=== PATIENT | female | born 1970 | race Caucasian/White ===

== ENCOUNTER 2021-11-09 08:27 | Emergency (ER) | payer SELFPAY ==
[2021-11-09 09:52] LABS: Absolute Lymphocytes (CBC) 1.8 K/uL (0.7-4.9); Hematocrit 40.3 % (36.0-45.0); Lymphocytes % 26.2 % (15.3-44.8); MPV 7.4 fL (7.6-11.3); RBC Red Blood Cell Count 4.37 M/uL (3.86-4.86)
[2021-11-09 10:03] LABS: ALT/SGPT 20 U/L (12-78); AST/SGOT 7 U/L (15-37); Albumin 3.2 g/dL (3.4-5.0); Alkaline Phosphatase 60 U/L (45-117); BUN Blood Urea Nitrogen 12 mg/dL (7-18); Bicarbonate 28 mmol/L (21-32); Bilirubin Direct < 0.1 mg/dL (0-0.2); Bilirubin Total 0.3 mg/dL (0.2-1.0); Glucose Level 104 mg/dL (74-106); Lipase 44 U/L (73-393); Potassium 3.8 mmol/L (3.5-5.1); Protein, Total 7.6 g/dL (6.4-8.2); Sodium Level 140 mmol/L (136-145)
--- NOTE | 2021-11-09 10:22 | RAD REPORT ---
EXAM DESCRIPTION: CTAbdomen Pelvis W Contrast - 11/09/2021 10:06 am CLINICAL HISTORY: right sided abdominal pain COMPARISON: No comparisons TECHNIQUE: CT of the abdomen and pelvis was performed. All CT scans are performed using dose optimization technique as appropriate and may include automated exposure control or mA/KV adjustment according to patient size. FINDINGS: Lower chest: No acute abnormality. Liver: No acute abnormality or suspicious lesions. Biliary: Cholecystectomy Stomach: No significant focal abnormality. Duodenum: No significant focal abnormality. Pancreas: No significant abnormality. Spleen: No significant abnormality. Adrenal: No suspicious lesions. Kidney/ureter: No hydronephrosis. No renal calculi. Retroperitoneum: No retroperitoneal adenopathy. Vascular: No aneurysm. Bowel: No significant focal abnormality. Normal appendix. Peritoneum: No ascites or free air. Tiny fat containing umbilical hernia. Bladder: Trace bladder gas. Reproductive: No adnexal masses. Nabothian cyst noted. Bones: No acute fracture. Other: n/a IMPRESSION: No acute intra-abdominal or pelvic finding. Trace bladder gas could represent infection. Correlate with urinalysis. Normal appendix. No urinary tract calculi.
[2021-11-09 10:23] LABS: Urine Blood Trace-intact (Negative); Urine Glucose Negative (Negative); Urine Protein Negative (Negative); Urine pH 5.5 (5.0-7.0)
--- NOTE | 2021-11-09 10:47 | ER ---
Nurse's Notes [facility] Name: Brenda Nicole Age: 51 yrs Sex: Female : 1970 Arrival Date: 11/09/2021 Time: 08:30 Bed 13 Private MD: Diagnosis: Other abdominal pain Presentation: 11/09 08:33 Chief complaint: Patient states: sob, sinus congestion, abdominal pain. tested positive meyer for covid oct 23. Coronavirus screen: Vaccine status: Patient reports receiving the 2nd dose of the covid vaccine. Ebola Screen: Patient denies travel to an Ebola-affected area in the 21 days before illness onset. Initial Sepsis Screen: Does the patient meet any 2 criteria? No. Patient's initial sepsis screen is negative. Does the patient have a suspected source of infection? No. Patient's initial sepsis screen is negative. Risk Assessment: Do you want to hurt yourself or someone else? Patient reports no desire to harm self or others. Onset of symptoms was November 09, 2021. 08:33 Method Of Arrival: Ambulatory meyer 08:33 Acuity: ANKITA 3 meyer Triage Assessment: 08:35 General: Appears uncomfortable, well developed, well nourished, Behavior is calm, cb5 cooperative, appropriate for age. Pain: Complains of pain in abdomen Pain radiates to back Pain currently is 5 out of 10 on a pain scale. Respiratory: Reports cough that is tested positive for Covid in Oct Onset: The symptoms/episode began/occurred the patient has mild shortness of breath. Historical: - Allergies: 08:36 Sulfa (Sulfonamide Antibiotics); meyer - Home Meds: 08:36 None [Active]; meyer - PSHx: 08:36 None; meyer - Immunization history:: Adult Immunizations up to date. - Social history:: Smoking status: Patient denies any tobacco usage or history of. Screenin:56 Abuse screen: Denies threats or abuse. Denies injuries from another. Nutritional cb5 screening: No deficits noted. Tuberculosis screening: No symptoms or risk factors identified. Fall Risk None identified. Assessment: 08:45 General: Appears in no apparent distress. obese, well groomed, well nourished, Behavior cb5 is calm, cooperative, appropriate for age. Pain: Complains of pain in back and abdomen Pain currently is 5 out of 10 on a pain scale. Neuro: No deficits noted. Level of Consciousness is awake, alert, obeys commands, Oriented to person, place, time, situation, Appropriate for age. Cardiovascular: Rhythm is sinus rhythm. Respiratory: Reports cough that is Airway is patent Respiratory effort is even, Breath sounds are clear. GI: Patient currently denies. : Denies. EENT: No deficits noted. Derm: No deficits noted. Musculoskeletal: No deficits noted. Vital Signs: 08:33 BP 166 / 104; Pulse 89; Resp 18; Temp 97.7(O); Pulse Ox 100% on R/A; Weight 111.13 kg; meyer Height 5 ft. 6 in. (167.64 cm); 08:56 BP 152 / 76; Pulse 73; Resp 16; Temp 98.4; Pulse Ox 98% ; Pain 5/10; cb5 10:47 BP 131 / 70; Pulse 72; Resp 16; Temp 98.7; Pulse Ox 99% ; Pain 0/10; cb5 08:33 Body Mass Index 39.54 (111.13 kg, 167.64 cm) meyer ED Course: 08:30 Patient arrived in ED. as 08:36 Triage completed. meyer 08:37 Brandon Hui PA is PHCP. [facility] 08:37 Nathan Lisa MD is Attending Physician. [facility] 08:40 Peggy Messer, CARMELINA is Primary Nurse. cb5 08:54 Arm band placed on right wrist. cb5 08:56 Bed in low position. Call light in reach. Side rails up X 1. cb5 09:32 Basic Metabolic Panel Sent. cb5 09:32 CBC with Diff Sent. cb5 09:32 Hepatic Function Sent. cb5 09:32 Lipase Sent. cb5 09:39 Inserted saline lock: 22 gauge in right antecubital area, using aseptic technique. mb4 Blood collected. 09:49 IV discontinued, bleeding controlled, Pressure dressing applied. mb4 09:49 Inserted saline lock: 22 gauge in left antecubital area, using aseptic technique. mb4 10:06 CT Abd/Pelvis - IV Contrast Only In Process Unspecified. EDMS 10:46 Anibal Freitas MD is Referral Physician. jmm 10:54 No provider procedures requiring assistance completed. cb5 10:55 Patient did not have IV access during this emergency room visit. cb5 Administered Medications: No medications were administered Outcome: 10:46 Discharge ordered by MD. carrillo 10:54 Discharged to home ambulatory. cb5 10:54 Condition: stable 10:54 Discharge instructions given to patient. 10:55 Patient left the ED. cb5 Signatures: Dispatcher [employer] EDMS Brandon Hui PA PA jmm Martinez, Amelia as Baxter, Mackenzie mb4 Sahara Holloway RN Peggy Chen RN RN cb5
--- NOTE | 2021-11-09 10:47 | EDPHYS ---
Physician Documentation [facility] Name: Brenda Nicole Age: 51 yrs Sex: Female : 1970 Arrival Date: 11/09/2021 Time: 08:30 Bed 13 Private MD: ED Physician Nathan Lisa HPI: 11/09 10:43 This 51 yrs old Female presents to ER via Ambulatory with complaints of abdominal pain. m 10:43 The patient presents with abdominal pain. Onset: The symptoms/episode began/occurred jmm gradually, 1 week(s) ago. The symptoms do not radiate. Associated signs and symptoms: Pertinent negatives: nausea and vomiting, diarrhea. The symptoms are described as achy. The patient has not experienced similar symptoms in the past. This is a 51-year-old female who presents emerged from with complaints of right-sided abdominal pain beginning approximately a week ago. Patient states she initially felt a sensation of a mass. States that when she moves it exacerbates the pain. Pain is increased. Patient denies fever, vomiting, diarrhea.. Historical: - Allergies: 08:36 Sulfa (Sulfonamide Antibiotics); meyer - Home Meds: 08:36 None [Active]; meyer - PSHx: 08:36 None; meyer - Immunization history:: Adult Immunizations up to date. - Social history:: Smoking status: Patient denies any tobacco usage or history of. ROS: 10:43 Constitutional: Negative for fever, chills, and weight loss, Cardiovascular: Negative jmm for chest pain, palpitations, and edema, Respiratory: Negative for shortness of breath, cough, wheezing, and pleuritic chest pain. 10:43 Abdomen/GI: Positive for abdominal pain. 10:43 All other systems are negative. Exam: 10:43 Constitutional: This is a well developed, well nourished patient who is awake, alert, jmm and in no acute distress. Head/Face: atraumatic. Eyes: EOMI, no conjunctival erythema appreciated ENT: Moist Mucus Membranes Neck: Trachea midline, Supple Chest/axilla: Normal chest wall appearance and motion. Cardiovascular: Regular rate and rhythm. No edema appreciated Respiratory: Normal respirations, no respiratory distress appreciated 10:43 Back: Normal ROM Skin: General appearance color normal MS/ Extremity: Moves all extremities, no obvious deformities appreciated, no edema noted to the lower extremities Neuro: Awake and alert, normal gait Psych: Behavior is normal, Mood is normal, Patient is cooperative and pleasant 10:43 Abdomen/GI: Inspection: abdomen appears normal, Bowel sounds: normal, Palpation: soft, moderate abdominal tenderness, in the right upper quadrant and right lower quadrant. Vital Signs: 08:33 BP 166 / 104; Pulse 89; Resp 18; Temp 97.7(O); Pulse Ox 100% on R/A; Weight 111.13 kg; meyer Height 5 ft. 6 in. (167.64 cm); 08:56 BP 152 / 76; Pulse 73; Resp 16; Temp 98.4; Pulse Ox 98% ; Pain 5/10; cb5 10:47 BP 131 / 70; Pulse 72; Resp 16; Temp 98.7; Pulse Ox 99% ; Pain 0/10; cb5 08:33 Body Mass Index 39.54 (111.13 kg, 167.64 cm) meyer MDM: 08:55 Patient medically screened. lorena 10:45 Data reviewed: vital signs, nurses notes. Counseling: I had a detailed discussion with lorena the patient and/or guardian regarding: the historical points, exam findings, and any diagnostic results supporting the discharge/admit diagnosis, radiology results, the need for outpatient follow up, to return to the emergency department if symptoms worsen or persist or if there are any questions or concerns that arise at home. ED course: Patient advised follow-up PCP and otherwise given strict return precautions. Patient understood agrees plan of care.. 11/09 08:59 Order name: Basic Metabolic Panel; Complete Time: 10:06 [facility] 11/09 08:59 Order name: CBC with Diff; Complete Time: 10:06 [facility] 11/09 08:59 Order name: Hepatic Function; Complete Time: 10:06 [facility] 11/09 08:59 Order name: Lipase; Complete Time: 10:06 [facility] 11/09 08:59 Order name: CT Abd/Pelvis - IV Contrast Only; Complete Time: 10:26 [facility] 11/09 10:22 Order name: Urine Dipstick-Ancillary; Complete Time: 10:24 [facility] 11/09 08:59 Order name: IV Saline Lock; Complete Time: 09:32 [facility] 11/09 08:59 Order name: Labs collected and sent; Complete Time: 09:32 [facility] 11/09 09:02 Order name: Urine Test (obtain specimen); Complete Time: 10:47 [facility] 11/09 09:02 Order name: Urine Dipstick-Ancillary (obtain specimen); Complete Time: 10:47 [facility] Administered Medications: No medications were administered Disposition: 15:25 Co-signature as Attending Physician, Nathan Lisa MD I agree with the assessment and rn plan of care. Attestation: The patient's history, exam findings, diagnostics, and a summary of any interventions or procedures was reviewed in detail with Brandon XIE. Disposition Summary: 11/09/21 10:46 Discharge Ordered Location: Home [facility] Condition: Stable [facility] Diagnosis - Other abdominal pain [facility] Followup: [facility] - With: Anibal Freitas MD - When: 2 - 3 days - Reason: Recheck today's complaints, Continuance of care, Re-evaluation by your physician Discharge Instructions: - Discharge Summary Sheet [facility] - Abdominal Pain, Adult [facility] Forms: - Medication Reconciliation Form [facility] - Thank You Letter [facility] - Antibiotic Education [facility] - Prescription Opioid Use [facility] Signatures: Dispatcher [employer] EDMS Brandon Hui PA PA [facility] Nathan Lisa MD MD rn Sahara Holloway RN RN meyer
[2021-11-09 13:49] VITALS: BP 131/70; TEMP 98.7; O2SAT 99
== END 2021-11-09 10:55 | disposition home or self-care (01) ==
LOC: ER 08:27
DX: R10.9 Unspecified abdominal pain (principal); Z88.2 Allergy status to sulfonamides
CPT/HCPCS: 36415; 74177; 80048; 80076; 81003; 82565; 83690; 85025; 99284; Q9967

== ENCOUNTER 2021-11-14 05:38 | Emergency (ER) | payer SELFPAY ==
--- OUTSIDE RECORDS SUMMARY | 2021-11-14 05:41 | XMS REPORT | Continuity of Care Document ---
:1970 Author Organization [facility] t Address [address] [place] [address] Dr. Valle [address] [place] [id number] Care Team Providers Name Role Phone PCP, DOES NOT HAVE A Primary Care Physician Unavailable RADHAMES Attending Clinician Unavailable Radhames VALENCIA Attending Clinician Problems Condition Condition Condition Status Onset Resolution Last Treating Co mments Source Name Details Category Date Date Treatment Clinician Date No known No known Disease Unive rs active active ity of problems problems [facility] Allergies, Adverse Reactions, Alerts Allergy Allergy Status Severity Reaction(s) Onset Inactive Treating Comm ents Source Name Type Date Date Clinician SULFA Drug Active Unknown-Cmnt 0 Univ ers (SULFONA Class 1-25 ity of MIDE 00:00: [place] ANTIBIOT 00 Medical ICS) Branch Sulfa Propensi Active Unknown - 2021-0 Unive rs (Sulfona ty to See comments 1-25 it y of mide adverse 00:00: [place] Antibiot reaction 00 Medica l ics) s Branch NO KNOWN Drug Active Univers ALLERGIE Class ity of S [facility] Social History Social Habit Start Date Stop Date Quantity Comments Source Exposure to Not sure [facility] SARS-CoV-2 (event) Medica l Branch Tobacco use and 2021-11-11 2021-11-11 Never used [facility] exposure 00:00:00 00:00:00 Medical [place] Sex Assigned At [birth year] [facility] 00:00:00 00:00:00 Medical [place] Smoking Status Start Date Stop Date Source Never smoker [facility] Medications Ordered Filled Start Stop Current Ordering Indication Dosage Frequency Signature Comments Components Source Medication Medication Date Date Medication? Clinician (SIG) Name Name evitaira Yes [id number] 10mL Take 10 mL Univers mine-pseudo 11-11 by mouth 4 it y of ephedrine-D 00:00[place] (BROMFED 00 times Medical DM) 2-30-10 daily as Bran ch mg/5 mL needed for syrup Congestion /Allergies . amoxicillin 2021- Yes [id number] 1{tbl} Take 1 Univers -clavulanat 11-11 tablet by it y of e 875-125 00:00: 05:59 mouth 2 [place] mg per 00 :00 (two) Medical tablet times Branch daily for 7 days. Vital Signs Vital Name Observation Time Observation Value Comments Source Systolic blood 2021-11-12 00:19:00 133 mm[facility]Hg[facility] Diastolic blood 2021-11-12 00:19:00 86 mm[Hg] Unive [facility] Heart rate 2021-11-12 00:19:00 101 /min [facility] Body temperature 2021-11-12 00:19:00 36.89 [facility] Respiratory rate 2021-11-12 00:19:00 18 /min [facility] Body height 2021-11-12 00:19:00 168.9 cm [facility] Body weight 2021-11-12 00:19:00 108.863 kg [facility] BMI 2021-11-12 00:19:00 38.16 kg/m2 [facility] Oxygen saturation in 2021-11-12 00:19:00 98 /min [facility] Arterial blood by [facility] Pulse oximetry Branch Procedures This patient has no known procedures. Encounters Start End Encounter Admission Attending Care Care Encounter Source Date/Time Date/Time Type Type Clinicians Facility Department ID 2021-11-11 2021-11-11 Outpatient R JESSY RICCI [facility] [id number] Univers 18:20:00 18:50:43 RIAN granados [facility] 2021-11-11 2021-11-11 Urgent JESSY Ricci [id number] Univers 18:20:00 18:50:43 [facility] [id number] it y of [facility] [id number] Naveen as ISSA?BLEA [id number] [place] ger[place] [address] MEDICAL OFFICE BUILDING Results This patient has no known results.
--- NOTE | 2021-11-14 06:09 | EDPHYS ---
Physician Documentation [facility] Name: Brenda Nicole Age: 51 yrs Sex: Female : 1970 Arrival Date: 11/14/2021 Time: 05:41 Bed 17 Private MD: ED Physician Roby Mclean HPI: 11/14 06:05 This 51 yrs old Female presents to ER via Ambulatory with complaints of Sinus kb Congestion. 06:05 The patient or guardian reports. The patient has not experienced similar symptoms in kb the past. The patient has not recently seen a physician. Pt reports sinus congestion for 13 days. Was seen by provider and given medication for cough/congestion, augmentin and flonaze. States it isn't working and she is still having trouble breathing through her nose so she came in. 06:07 The patient presents with nasal drainage, that is watery. Onset: The symptoms/episode kb began/occurred 13 day(s) ago. Modifying factors: The symptoms are alleviated by nothing. the symptoms are aggravated by nothing. Associated signs and symptoms: Loss of consciousness: the patient experienced no loss of consciousness, Pertinent positives: sinus congestion, Pertinent negatives: fever. Severity of symptoms: At their worst the symptoms were moderate in the emergency department the symptoms are unchanged. 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 - Social history:: Smoking status: Patient denies any tobacco usage or history of. ROS: 06:07 Constitutional: Negative for fever, chills, and weight loss. kb 06:07 ENT: Positive for rhinorrhea, sinus congestion. 06:07 All other systems are negative. Exam: 06:07 Constitutional: This is a well developed, well nourished patient who is awake, alert, kb and in no acute distress. Head/Face: Normocephalic, atraumatic. ENT: Moist Mucous membranes Cardiovascular: Regular rate and rhythm with a normal S1 and S2. No gallops, murmurs, or rubs. No pulse deficits. Respiratory: Respirations even and unlabored. No increased work of breathing. Talking in full sentences Skin: Warm, dry with normal turgor. Normal color. MS/ Extremity: Pulses equal, no cyanosis. Neurovascular intact. Full, normal range of motion. Neuro: Awake and alert, GCS 15, oriented to person, place, time, and situation. Moves all extremities. Normal gait. Psych: Awake, alert, with orientation to person, place and time. Behavior, mood, and affect are within normal limits. Vital Signs: 05:59 BP 121 / 74; Pulse 95; Resp 20; Temp 97.7(O); Pulse Ox 98% on R/A; Weight 108.86 kg; tw5 Height 5 ft. 6 in. (167.64 cm); Pain 9/10; 05:59 Body Mass Index 38.74 (108.86 kg, 167.64 cm) tw5 MDM: 06:01 Patient medically screened. kb 06:07 Data reviewed: vital signs, nurses notes. Data interpreted: Pulse oximetry: on room air kb is 98 %. Interpretation: normal. Counseling: I had a detailed discussion with the patient and/or guardian regarding: the historical points, exam findings, and any diagnostic results supporting the discharge/admit diagnosis, the need for outpatient follow up, a family practitioner, to return to the emergency department if symptoms worsen or persist or if there are any questions or concerns that arise at home. Administered Medications: 06:17 Drug: predniSONE 40 mg Route: PO; sf1 Disposition: 06:50 Co-signature as Attending Physician, Roby Mclean MD. pkl Disposition Summary: 11/14/21 06:08 Discharge Ordered Location: Home kb Condition: Stable kb Diagnosis - Acute sinusitis, unspecified kb Followup: kb - With: Emergency Department - When: As needed - Reason: Worsening of condition Followup: kb - With: Private Physician - When: 2 - 3 days - Reason: Recheck today's complaints, Continuance of care, Re-evaluation by your physician Discharge Instructions: - Discharge Summary Sheet kb - Sinusitis, Adult, [id number] kb Forms: - Medication Reconciliation Form kb - Thank You Letter kb - Antibiotic Education kb - Prescription Opioid Use kb Prescriptions: - Prednisone 20 mg Oral Tablet - take 1 tablet by ORAL route once daily for 5 days; 5 tablet; Refills: 0, kb Product Selection Permitted Signatures: Kelsea Barry, Roby Smith MD MD pkl Wood, Tiffany tw5 Yazmin Jolly RN RN sf1
--- NOTE | 2021-11-14 06:09 | ER ---
Nurse's Notes [facility] Name: Brenda Nicole Age: 51 yrs Sex: Female : 1970 Arrival Date: 11/14/2021 Time: 05:41 Bed 17 Private MD: Diagnosis: Acute sinusitis, unspecified Presentation: 11/14 05:59 Chief complaint: Patient states: "I was in here on Wednesday. I have been really tw5 congested. I also went to another doctor for medication. Nothing is draining and it is clogged. I am not starting to have a headache across my forehead and down into my neck. I have been on the medication since Wednesday.". Coronavirus screen: Vaccine status: Patient reports receiving the 2nd dose of the covid vaccine. Performance Indicator Patient reports having had a previously documented Covid positive illness. x2. Ebola Screen: Patient negative for fever greater than or equal to 101.5 degrees Fahrenheit, and additional compatible Ebola Virus Disease symptoms Patient denies exposure to infectious person. Patient denies travel to an Ebola-affected area in the 21 days before illness onset. Initial Sepsis Screen: Does the patient meet any 2 criteria? No. Patient's initial sepsis screen is negative. Does the patient have a suspected source of infection? No. Patient's initial sepsis screen is negative. Risk Assessment: Do you want to hurt yourself or someone else? Patient reports no desire to harm self or others. Onset of symptoms was November 01, 2021. 05:59 Method Of Arrival: Ambulatory tw5 05:59 Acuity: ANKITA 4 tw5 Triage Assessment: 06:01 General: Appears in no apparent distress. Behavior is calm, cooperative, appropriate tw5 for age. Pain: Complains of pain in forehead Pain currently is 9 out of 10 on a pain scale. 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 - Social history:: Smoking status: Patient denies any tobacco usage or history of. Screenin:05 Abuse screen: Denies threats or abuse. Denies injuries from another. Nutritional tw5 screening: No deficits noted. Tuberculosis screening: No symptoms or risk factors identified. Fall Risk None identified. Vital Signs: 05:59 BP 121 / 74; Pulse 95; Resp 20; Temp 97.7(O); Pulse Ox 98% on R/A; Weight 108.86 kg; tw5 Height 5 ft. 6 in. (167.64 cm); Pain 9/10; 05:59 Body Mass Index 38.74 (108.86 kg, 167.64 cm) tw5 ED Course: 05:41 Patient arrived in ED. es 06:00 Kelsea Barry FNP-C [facility]. kb 06:00 Roby Mclean MD is Attending Physician. kb 06:01 Triage completed. tw5 06:05 Arm band placed on. tw5 06:09 Yazmin Jolly RN is Primary Nurse. sf1 06:17 Patient has correct armband on for positive identification. sf1 06:17 No provider procedures requiring assistance completed. Patient did not have IV access sf1 during this emergency room visit. Administered Medications: 06:17 Drug: predniSONE 40 mg Route: PO; sf1 Outcome: 06:08 Discharge ordered by . kb 06:17 Discharged to home ambulatory. sf1 06:17 Condition: good 06:17 Discharge instructions given to patient, Instructed on discharge instructions, follow up and referral plans. Demonstrated understanding of instructions, follow-up care, medications, Prescriptions given X 1. 06:18 Patient left the ED. sf1 Signatures: Kelsea Barry FNP-C FNP-Ckb Salyer, Edna es Wood, Tiffany tw5 Yazmin Jolly RN RN sf1
[2021-11-14] MEDS ORDERED: predniSONE 20 MG TAB ONE (06:15)
[2021-11-14 06:22] VITALS: BP 121/74; TEMP 97.7; O2SAT 98
== END 2021-11-14 06:18 | disposition home or self-care (01) ==
LOC: ER 05:38
DX: J01.90 Acute sinusitis, unspecified (principal); Z88.2 Allergy status to sulfonamides
CPT/HCPCS: 99283; J7512

== ENCOUNTER 2021-12-12 00:24 | Observation (INO) | payer SELFPAY ==
--- OUTSIDE RECORDS SUMMARY | 2021-12-12 00:27 | XMS REPORT | Continuity of Care Document ---
:1970 Author Organization [facility] t Address [address] [place] [address] Dr. Valle [address] [place] [id number] Care Team Providers Name Role Phone PCP, DOES NOT HAVE A Primary Care Physician Unavailable RADHAMES Attending Clinician Unavailable Radhames VALENCIA Attending Clinician Problems Condition Condition Condition Status Onset Resolution Last Treating Co mments Source Name Details Category Date Date Treatment Clinician Date No known No known Disease Unive rs active active ity of problems problems [facility] Allergies, Adverse Reactions, Alerts Allergy Allergy Status [...] Active Univers ALLERGIE Class ity of S [facility] Social History Social Habit Start Date Stop Date Quantity Comments Source Exposure to Not sure [facility] SARS-CoV-2 (event) Medica l Branch Tobacco use and 2021-11-11 2021-11-11 Never used [facility] exposure 00:00:00 00:00:00 Medical [place]arnell Sex Assigned At [birth year] [facility] 00:00:00 00:00:00 Medical [place] Smoking Status Start Date Stop Date Source Never smoker [facility] Medications Ordered Filled Start Stop Current Ordering Indication Dosage Frequency Signature Comments Components Source Medication Medication Date Date Medication? Clinician (SIG) Name Name evitaira Yes [id number] 10mL Take 10 mL Univers mine-pseudo 11-11 by mouth 4 it y of ephedrine-D 00:00: ([place] (BROMFED 00 times Medical DM) 2-30-10 daily as Bran ch mg/5 mL needed for syrup Congestion /Allergies . amoxicillin 2021- Yes [id number] 1{tbl} Take 1 Univers -clavulanat 11-11 tablet by it y of e 875-125 00:00: 05:59 mouth 2 [place] mg per 00 :00 (two) Medical tablet times Branch daily for 7 days. Vital Signs Vital Name Observation Time Observation Value Comments Source Systolic blood 2021-11-12 00:19:00 133 [facility]Hg[facility] Diastolic blood 2021-11-12 00:19:00 86 mm[Hg] Unive [facility] Heart rate 2021-11-12 00:19:00 101 /min [facility] Body temperature 2021-11-12 00:19:00 36.89 Jenn [facility] Respiratory rate 2021-11-12 00:19:00 18 /min [facility] Body height 2021-11-12 00:19:00 168.9 cm [facility] Body weight 2021-11-12 00:19:00 108.863 kg [facility] BMI 2021-11-12 00:19:00 38.16 kg/m2 [facility] Oxygen saturation in 2021-11-12 00:19:00 98 /min [facility] Arterial blood by [facility] Pulse oximetry Branch Procedures This patient has no known procedures. Encounters Start End Encounter Admission Attending Care Care Encounter Source Date/Time Date/Time Type Type Clinicians Facility Department ID 2021-11-11 2021-11-11 Outpatient R JESSY RICCI [facility] [id number] Univers 18:20:00 18:50:43 RIAN granados [facility] 2021-11-11 2021-11-11 Urgent JESSY Ricci [id number] Univers 18:20:00 18:50:43 [facility] [id number] it y of [place] [id number] Naveen as ISSA?BLEA [id number] Ne geri [address] MEDICAL OFFICE BUILDING Results This patient has no known results.
[2021-12-12 00:52] LABS: Absolute Lymphocytes (CBC) 2.9 K/uL (0.7-4.9); Hematocrit 40.5 % (36.0-45.0); MPV 7.3 fL (7.6-11.3); RBC Red Blood Cell Count 4.47 M/uL (3.86-4.86)
[2021-12-12 00:56] LABS: Protime INR 0.87
--- NOTE | 2021-12-12 01:19 | ER ---
Nurse's Notes [facility] Name: Brenda Nicole Age: 51 yrs Sex: Female : 1970 Arrival Date: 12/12/2021 Time: 00:26 Bed 4 Private MD: Diagnosis: Paresthesia of skin Presentation: 12/12 00:37 Chief complaint: Patient states: "I had a TIA back on November 23. I woke up with tw5 numbness on my right side that felt the same and then.". Coronavirus screen: Vaccine status: Patient reports receiving the 2nd dose of the covid vaccine. [employer]. Ebola Screen: Patient negative for fever greater than or equal to 101.5 degrees Fahrenheit, and additional compatible Ebola Virus Disease symptoms Patient denies exposure to infectious person. Patient denies travel to an Ebola-affected area in the 21 days before illness onset. No acute neurological deficit is noted. Pre-hospital glucose is not applicable to this patient. Initial Sepsis Screen: Does the patient meet any 2 criteria? Yes Does the patient have a suspected source of infection? No. Patient's initial sepsis screen is negative. Risk Assessment: Do you want to hurt yourself or someone else? Patient reports no desire to harm self or others. Onset of symptoms was December 11, 2021 at 22:00. 00:37 Method Of Arrival: Wheelchair tw5 00:37 Acuity: ANKITA 3 tw5 Triage Assessment: 00:37 The onset of the patients symptoms was December 11, 2021 at 22:00. General: Appears in tw5 no apparent distress. Behavior is cooperative, appropriate for age, anxious. 04:30 Neuro: Reports numbness in right cheek. 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 tw5 Stroke Activation: Symptom onset < 3 hours Physician: Stroke Attending; Name: Maria L; Notified At: 00:23; Arrived At: 00:24 Physician: Chief Stroke Resident; Name: ; Notified At: 00:23; Arrived At: Physician: Stroke Resident; Name: ; Notified At: 00:23; Arrived At: Physician: ED Attending; Name: ; Notified At: 00:23; Arrived At: Physician: ED Resident; Name: ; Notified At: 00:23; Arrived At: Historical: - Allergies: 00:31 Sulfa (Sulfonamide Antibiotics); tw5 - Home Meds: 00:32 aspirin 81 mg Oral chew 1 tab once daily [Active]; atorvastatin 40 mg oral tab 1 tab tw5 once daily [Active]; folic acid 1 mg Oral tab 1 tab once daily [Active]; clopidogrel 75 mg oral tab 1 tab once daily [Active]; - PMHx: 00:32 TIA - Nov 2021; tw5 - PSHx: 00:32 Tonsillectomy; Ligation of fallopian tube; Cholecystectomy; tw5 - Immunization history:: Flu vaccine is up to date. - Social history:: Smoking status: Patient denies any tobacco usage or history of. - Family history:: not pertinent. - Hospitalizations: : The patient was recently seen at [facility]. Screenin:40 Abuse screen: Denies threats or abuse. Denies injuries from another. Nutritional tw5 screening: No deficits noted. Tuberculosis screening: No symptoms or risk factors identified. Fall Risk No fall in past 12 months (0 pts). Assessment: 00:27 VAN Scoring: Arm Drift: Patients demonstrates NO arm weakness. Patient is VAN Negative. tw5 Visual Disturbance: No visual disturbance noted. Aphasia: No aphasia noted. Neglect: No neglect noted. Patient has been NPO before screening. The patient is alert, and able to follow commands. The patient does not exhibit slurred or garbled speech. The patient is not exhibiting difficulty speaking. The patient does not exhibit difficulty understanding words. The patient is able to swallow own secretions with no drooling or need for suction. Patient tolerated one teaspoon of water. No drooling, immediate coughing, gurgling, or clearing of the throat was noted. The patient passed the bedside swallow screening. Oral medications may be given as ordered. Contact Physician for further diet orders. Provider notified of bedside swallow screening results: Nathan Lisa MD. T-PA (Activase) Screening: Indications: Treatment will start within 4.5 hours onset of symptoms: Yes. Pain: Denies pain. Neuro: Level of Consciousness is awake, alert, obeys commands, Oriented to person, place, time, situation. Neuro: Moves all extremities. Full function Speech is normal. Respiratory: Airway is patent Trachea midline Respiratory effort is even, unlabored. 00:44 T-PA (Activase) Screening: Contraindications: Other: TPA administered on the 6th november. Vital Signs: 00:32 BP 135 / 75; Pulse 93; Resp 14; Temp 97.5(TE); Pulse Ox 99% on R/A; Weight 116.12 kg; tw5 Height 5 ft. 6 in. (167.64 cm); Pain 0/10; 01:40 BP 107 / 42; Pulse 80; Resp 21 S; Pulse Ox 97% on R/A; as6 02:40 BP 129 / 77; Pulse 77; Resp 15 S; Pulse Ox 94% on R/A; as6 00:32 Body Mass Index 41.32 (116.12 kg, 167.64 cm) tw5 NIH Stroke Scale Scores: 00:27 NIHSS Score: 1 tw5 00:31 NIHSS Score: 1 alternative education teacher Course: 00:23 Patient arrived in ED. Patient moved to CT via wheelchair. tw5 00:27 Nathan Lisa MD is Attending Physician. rn 00:31 Inserted saline lock: 20 gauge in right antecubital area, using aseptic technique. tw5 Blood collected. 00:31 Inserted saline lock: 20 gauge in left antecubital area, using aseptic technique. Blood tw5 collected. 00:31 Initial lab(s) drawn, by ED staff, sent to lab. tw5 00:33 Tania Hamilton is Primary Nurse. tw5 00:34 CT Stroke Brain w/o Contrast In Process Unspecified. EDMS 00:37 Arm band placed on right wrist. tw5 00:40 Triage completed. tw5 00:41 Patient has correct armband on for positive identification. Placed in gown. Bed in low tw5 position. Call light in reach. Side rails up X2. machine ceramic coater on. Pulse ox on. NIBP on. Door closed. Noise minimized. Moved to private room. Warm blanket given. Verbal reassurance given. 00:47 EKG done, by ED staff, reviewed by Nathan Lisa MD. tw 00:47 Basic Metabolic Panel Sent. 00:47 CBC with Diff Sent. tw 00:47 Protime (+inr) Sent. tw 00:47 Ptt, Activated Sent. tw5 00:53 Stroke CXR 1 View In Process Unspecified. EDMS 01:18 Rito Barboza is Hospitalizing Provider. rn 01:39 Vijay Kearney MD is Hospitalizing Provider. rn 01:42 CT Head Angio In Process Unspecified. EDMS 04:29 No provider procedures requiring assistance completed. IV discontinued, intact, as6 bleeding controlled, No redness/swelling at site. Pressure dressing applied. Administered Medications: 01:56 Drug: Decadron - Dexamethasone 10 mg Route: IVP; Site: right antecubital; as6 02:41 Follow up: Response: No adverse reaction as6 01:56 Drug: Aspirin 325 mg Route: PO; as6 02:41 Follow up: Response: No adverse reaction as6 Point of Care Testing: Blood Glucose: 00:41 Blood Glucose: 99 mg/dL; tw5 Ranges: Outcome: 01:19 Decision to Hospitalize by Provider. rn 04:29 Admitted to Med/surg accompanied by nurse, family with patient, via wheelchair, room as6 230, with chart, Report called to Jennifer COSME 04:29 Condition: stable 04:29 Instructed on the need for admit. 04:30 Patient left the ED. as6 NIH Stroke Scale - NIH Stroke Score Date: 12/12/2021 Time: 00:27 Total Score = 1 1a. Level of Consciousness (LOC) - 0(Alert) 1b. Level of Consciousness (LOC) (Month \\T\\ Age) - 0(Both) 1c. LOC Commands (Open \\T\\ Closes Eyes/Remote Control Mirror Installer) - 0(Both) 2. Best Gaze (Lateral Gaze Paresis) - 0(Normal) 3. Visual Field Loss - 0(No visual loss) 4. Facial Palsy - 0(Normal) 5a. Left Arm: Motor (10-second hold) - 0(No drift) 5b. Right Arm: Motor (10-second hold) - 0(No drift) 6a. Left Leg: Motor (5-second hold - always test supine) - 0(No drift) 6b. Right Leg: Motor (5-second hold - always test supine) - 0(No drift) 7. Limb Ataxia (finger/nose \\T\\ heel/humphries - test with eyes open) - 0(Absent) 8. Sensory Loss (pinprick arms/legs/face) - 1(Mild to moderate loss) 9. Best Language: Aphasia (description/naming/reading) - 0(No aphasia) 10. Dysarthria (speech clarity - read or repeat words) - 0(Normal) 11. Extinction and Inattention (visual/tactile/auditory/spatial/personal) - 0(No abnormality) Initials: NIH Stroke Scale - NIH Stroke Score Date: 12/12/2021 Time: 00:31 Total Score = 1 1a. Level of Consciousness (LOC) - 0(Alert) 1b. Level of Consciousness (LOC) (Month \\T\\ Age) - 0(Both) 1c. LOC Commands (Open \\T\\ Closes Eyes/Remote Control Mirror Installer) - 0(Both) 2. Best Gaze (Lateral Gaze Paresis) - 0(Normal) 3. Visual Field Loss - 0(No visual loss) 4. Facial Palsy - 0(Normal) 5a. Left Arm: Motor (10-second hold) - 0(No drift) 5b. Right Arm: Motor (10-second hold) - 0(No drift) 6a. Left Leg: Motor (5-second hold - always test supine) - 0(No drift) 6b. Right Leg: Motor (5-second hold - always test supine) - 0(No drift) 7. Limb Ataxia (finger/nose \\T\\ heel/humphries - test with eyes open) - 0(Absent) 8. Sensory Loss (pinprick arms/legs/face) - 1(Mild to moderate loss) 9. Best Language: Aphasia (description/naming/reading) - 0(No aphasia) 10. Dysarthria (speech clarity - read or repeat words) - 0(Normal) 11. Extinction and Inattention (visual/tactile/auditory/spatial/personal) - 0(No abnormality) Initials: rn Signatures: Dispatcher [employer] EDMA Nathan Lisa MD MD rn Wood, Tiffany Jostin Merino RN RN as6 Corrections: (The following items were deleted from the chart) 00:27 00:26 Patient arrived in ED. 00: 00:[address] via wheelchair.
--- NOTE | 2021-12-12 01:19 | EDPHYS ---
Physician Documentation [facility] Name: Brenda Nicole Age: 51 yrs Sex: Female : 1970 Arrival Date: 12/12/2021 Time: 00:26 Bed 4 Private MD: ED Physician Nathan Lisa HPI: 12/12 00:31 This 51 yrs old Female presents to ER via Unassigned with complaints of S/S of Possible rn Stroke. 00:31 The patient's problem is reported as paresthesias, in right side of face. Onset: The rn symptoms/episode began/occurred at an unknown time. Duration: This was a single incident, The episode is continuous. Context: symptoms became apparent upon waking, at 00:00. The symptoms are alleviated by nothing. The symptoms are aggravated by nothing. Associated signs and symptoms: Pertinent positives: numbness, Pertinent negatives: abdominal pain, chest pain, confusion, headache, seizure, shortness of breath, vomiting, weakness. Severity of symptoms: At their worst the symptoms were mild in the emergency department the symptoms are unchanged. The patient has experienced a previous episode. The patient has been recently been admitted at [facility]. Pt reports last known normal was 10 pm last night, woke up around midnight feeling right face numb. No trauma. Recently admitted for similar symptoms for stroke, received TPA at that time. Symptoms improved at that time. Reports told at that time not sure exactly what happened. Denies headache currently. . 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 - Social history:: Smoking status: Patient denies any tobacco usage or history of. - Family history:: not pertinent. - Hospitalizations: : The patient was recently seen at [facility]. ROS: 00:31 Constitutional: Negative for fever, chills, and weight loss, Eyes: Negative for injury, rn pain, redness, and discharge, Neck: Negative for injury, pain, and swelling, Cardiovascular: Negative for chest pain, palpitations, and edema, Respiratory: Negative for shortness of breath, cough, wheezing, and pleuritic chest pain, Abdomen/GI: Negative for abdominal pain, nausea, vomiting, diarrhea, and constipation, Back: Negative for injury and pain, MS/Extremity: Negative for injury and deformity, Skin: Negative for injury, rash, and discoloration, Neuro: Negative for headache, weakness, and seizure. Exam: 00:31 Constitutional: This is a well developed, well nourished patient who is awake, alert, rn and in no acute distress. Head/Face: Normocephalic, atraumatic. Eyes: Pupils equal round and reactive to light, extra-ocular motions intact. Lids and lashes normal. Conjunctiva and sclera are non-icteric and not injected. Cornea within normal limits. Periorbital areas with no swelling, redness, or edema. Cardiovascular: Regular rate and rhythm with a normal S1 and S2. No gallops, murmurs, or rubs. Normal PMI, no JVD. No pulse deficits. Respiratory: Lungs have equal breath sounds bilaterally, clear to auscultation and percussion. No rales, rhonchi or wheezes noted. No increased work of breathing, no retractions or nasal flaring. Abdomen/GI: Soft, non-tender, with normal bowel sounds. No distension or tympany. No guarding or rebound. No evidence of tenderness throughout. Skin: Warm, dry with normal turgor. Normal color with no rashes, no lesions, and no evidence of cellulitis. MS/ Extremity: Pulses equal, no cyanosis. Neurovascular intact. Full, normal range of motion. Equal circumference. Neuro: Awake and alert, GCS 15, oriented to person, place, time, and situation. Symmetric face with normal smile. No facial droop. + decreased sensation to soft touch right side of face. Motor strength 5/5 in all extremities. Sensory grossly intact. Cerebellar exam normal. Normal gait. 01:19 Radiologist reports: No acute findings rn Vital Signs: 00:32 BP 135 / 75; Pulse 93; Resp 14; Temp 97.5(TE); Pulse Ox 99% on R/A; Weight 116.12 kg; tw5 Height 5 ft. 6 in. (167.64 cm); Pain 0/10; 01:40 BP 107 / 42; Pulse 80; Resp 21 S; Pulse Ox 97% on R/A; as6 02:40 BP 129 / 77; Pulse 77; Resp 15 S; Pulse Ox 94% on R/A; as6 00:32 Body Mass Index 41.32 (116.12 kg, 167.64 cm) tw5 NIH Stroke Scale Scores: 00:27 NIHSS Score: 1 tw5 00:31 NIHSS Score: 1 rn MDM: 00:27 Patient medically screened. rn 00:51 ED course: Reviewed medical records, was admitted 11/22/21, seen by Dr. Flaherty, rn diagnosed with ischemic CVA, received TPA, and discharged after improving symptoms. Given recent diagnosis of ischemic CVA within 3 months with administration of TPA, is excluded by TPA today. Still waiting on CT head read by radiology. . 01:00 ED course: Radiology called with CT head result, no acute findings per virtual modern languages professor verbal report. . 01:06 ED course: Consulted with Dr. Flaherty, agrees that patient cannot receive TPA given rn recent diagnosis of CVA and got TPA this month. States if symptoms do not resolve, admit for MRI this time and medical management. . 01:17 Differential diagnosis: CVA, TIA, metabolic disorder, sinusitis, neuropathy, trigeminal rn neuralgia. Data reviewed: vital signs, nurses notes, old medical records, lab test result(s), EKG, radiologic studies, CT scan, and as a result, I will admit patient. Counseling: I had a detailed discussion with the patient and/or guardian regarding: the historical points, exam findings, and any diagnostic results supporting the discharge/admit diagnosis, lab results, radiology results, the need for further work-up and treatment in the hospital. Response to treatment: There is no appreciated change of the patient's symptoms at this time, and as a result, I will admit patient. Admission orders: after a detailed discussion of the patient's condition and case, the admit orders are written by me. 12/12 00:30 Order name: Basic Metabolic Panel rn 12/12 00:30 Order name: CBC with Diff; Complete Time: 01:17 rn 12/12 00:30 Order name: Protime (+inr); Complete Time: 01:17 rn 12/12 00:30 Order name: Ptt, Activated; Complete Time: 01:17 rn 12/12 00:30 Order name: Basic Metabolic Panel; Complete Time: 01:17 EDMS 12/12 01:00 Order name: Glucose, Ancillary Testing; Complete Time: : EDMS 12/12 00:30 Order name: CT Stroke Brain w/o Contrast rn 12/12 00:30 Order name: Stroke CXR 1 View rn 12/12 00:30 Order name: EKG; Complete Time: 00:31 rn 12/12 00:30 Order name: Accucheck; Complete Time: 00:47 rn 12/12 00:30 Order name: CT Head Angio rn 12/12 01:40 Order name: SARS-COV-2 RT PCR (Document "Date of Onset" if Symptomatic) rn 12/12 00:30 Order name: Cardiac monitoring; Complete Time: 00:47 rn 12/12 00:30 Order name: EKG - Nurse/Tech; Complete Time: 00:47 rn 12/12 00:30 Order name: IV Saline Lock; Complete Time: 00:47 rn 12/12 00:30 Order name: Labs collected and sent; Complete Time: 00:47 rn 12/12 00:30 Order name: NPO; Complete Time: 00:47 rn 12/12 00:30 Order name: O2 Per Protocol; Complete Time: 00:47 rn 12/12 00:30 Order name: O2 Sat Monitoring; Complete Time: 00:47 rn 12/12 00:30 Order name: Stroke Swallow Screen; Complete Time: 00:47 rn Administered Medications: 01:56 Drug: Decadron - Dexamethasone 10 mg Route: IVP; Site: right antecubital; as6 02:41 Follow up: Response: No adverse reaction as6 01:56 Drug: Aspirin 325 mg Route: PO; as6 02:41 Follow up: Response: No adverse reaction as6 Point of Care Testing: Blood Glucose: 00:41 Blood Glucose: 99 mg/dL; tw5 Ranges: Critical Glucose Levels:Adult <50 mg/dl or >400 mg/dl <40 mg/dl or >180 mg/dl Disposition Summary: 12/12/21 01:19 Hospitalization Ordered Hospitalization Status: Observation rn Location: Telemetry/MedSurg (observation) rn Condition: Stable rn Problem: an acute exacerbation rn Symptoms: are unchanged rn Bed/Room Type: Standard rn Provider: Vijay Kearney(12/12/21 01:39) rn Room Assignment: 230(12/12/21 03:27) mw Diagnosis - Paresthesia of skin rn Forms: - Medication Reconciliation Form rn - SBAR form rn NIH Stroke Scale - NIH Stroke Score Date: 12/12/2021 Time: 00:27 Total Score = 1 1a. Level of Consciousness (LOC) - 0(Alert) 1b. Level of Consciousness (LOC) (Month \\T\\ Age) - 0(Both) 1c. LOC Commands (Open \\T\\ Closes Eyes/Legal Document Assistant) - 0(Both) 2. Best Gaze (Lateral Gaze Paresis) - 0(Normal) 3. Visual Field Loss - 0(No visual loss) 4. Facial Palsy - 0(Normal) 5a. Left Arm: Motor (10-second hold) - 0(No drift) 5b. Right Arm: Motor (10-second hold) - 0(No drift) 6a. Left Leg: Motor (5-second hold - always test supine) - 0(No drift) 6b. Right Leg: Motor (5-second hold - always test supine) - 0(No drift) 7. Limb Ataxia (finger/nose \\T\\ heel/humphries - test with eyes open) - 0(Absent) 8. Sensory Loss (pinprick arms/legs/face) - 1(Mild to moderate loss) 9. Best Language: Aphasia (description/naming/reading) - 0(No aphasia) 10. Dysarthria (speech clarity - read or repeat words) - 0(Normal) 11. Extinction and Inattention (visual/tactile/auditory/spatial/personal) - 0(No abnormality) Initials: tw5 NIH Stroke Scale - NIH Stroke Score Date: 12/12/2021 Time: 00:31 Total Score = 1 1a. Level of Consciousness (LOC) - 0(Alert) 1b. Level of Consciousness (LOC) (Month \\T\\ Age) - 0(Both) 1c. LOC Commands (Open \\T\\ Closes Eyes/Legal Document Assistant) - 0(Both) 2. Best Gaze (Lateral Gaze Paresis) - 0(Normal) 3. Visual Field Loss - 0(No visual loss) 4. Facial Palsy - 0(Normal) 5a. Left Arm: Motor (10-second hold) - 0(No drift) 5b. Right Arm: Motor (10-second hold) - 0(No drift) 6a. Left Leg: Motor (5-second hold - always test supine) - 0(No drift) 6b. Right Leg: Motor (5-second hold - always test supine) - 0(No drift) 7. Limb Ataxia (finger/nose \\T\\ heel/humphries - test with eyes open) - 0(Absent) 8. Sensory Loss (pinprick arms/legs/face) - 1(Mild to moderate loss) 9. Best Language: Aphasia (description/naming/reading) - 0(No aphasia) 10. Dysarthria (speech clarity - read or repeat words) - 0(Normal) 11. Extinction and Inattention (visual/tactile/auditory/spatial/personal) - 0(No abnormality) Initials: rn Signatures: Dispatcher [employer] EDMS Jenny Guajardo RN RN mw Nieto, Roman, MD MD rn Wood, Tiffany tw5 Jostin Merino RN RN as6 Corrections: (The following items were deleted from the chart) 01:39 01:19 Rito Barboza rn, rn 03:27 01:19 vern webb
[2021-12-12] MEDS ORDERED: ASPIRIN 325 MG TAB ONE (01:50)
[2021-12-12] MEDS ORDERED: dexAMETHasone 10 MG/ML VIAL ONE (01:50)
--- NOTE | 2021-12-12 02:30 | P.HP ---
Certification for Inpatient Patient admitted to: Observation With expected LOS: <2 Midnights Patient will require the following post-hospital care: None Practitioner: I am a practitioner with admitting privileges, knowledge of patient current condition, hospital course, and medical plan of care. Services: Services provided to patient in accordance with Admission requirements found in Title 42 Section 412.3 of the Code of Federal Regulations Patient History Date of Service: 12/12/21 Reason for admission: Stroke R/O History of Present Illness: Patient is a 51-year-old female who presented to the ED after waking up with left sided face numbness. Patient was admitted here on 11/23/2021 for CVA vs TIA after experiencing similar symptoms and given TPA. Her symptoms resolved throughout her stay. Her intial CT and Repeat CT head were unremarkable. She did not have an MRI during that stay. Upon my assessment, patient states the facial numbness has improved significantly but is still slightly lingering. Head CT showed no acute hemorrhage, focal mass, or large territory infarction. Labs were unremarkable. Patient states she has been taking aspirin, folic acid, atorvastatin, and plavix as prescribed. She denies any other neurologic deficits. She has not been able to see Dr. Flaherty outpatient. Patient will be admitted for observation and MRI in the morning. Allergies Sulfa (Sulfonamide Antibiotics) Allergy (Verified 11/22/21 17:21) Unknown Home medications list reviewed: Yes Home Medications: Aspirin [Aspirin EC 81 MG] 81 mg PO DAILY #30 tablet. 11/23/21 Aspirin [Aspirin EC 81 MG] 81 mg PO DAILY #30 tablet. 11/23/21 Atorvastatin Calcium 40 mg PO DAILY #30 tablet 11/23/21 Atorvastatin Calcium [Lipitor] 40 mg PO BEDTIME #30 tablet 11/23/21 Clopidogrel Bisulfate [Plavix*] 75 mg PO DAILY #30 tablet 11/23/21 Clopidogrel Bisulfate [Plavix] 75 mg PO DAILY #30 tablet 11/23/21 Folic Acid 1 mg PO DAILY #30 tablet 11/23/21 Folic Acid 1 mg PO DAILY #30 tablet 11/23/21 - Past Medical/Surgical History Diabetic: No -: TIA -: Cholecystectomy Psychosocial/ Personal History: Patient lives at home with her and 2 children. - Family History Father -: Hypertension, Lung disease Mother -: Hypertension - Social History Smoking Status: Never smoker Alcohol use: No CD- Drugs: No Caffeine use: No Place of Residence: Home Review of Systems 10-point ROS is otherwise unremarkable Physical Examination - Physical Exam General: Alert, In no apparent distress, Oriented x3 HEENT: Atraumatic, PERRLA, Mucous membr. moist/pink, EOMI, Sclerae nonicteric Neck: Supple, 2+ carotid pulse no bruit, No LAD, Without JVD or thyroid abnormality Respiratory: Clear to auscultation bilaterally, Normal air movement Cardiovascular: Regular rate/rhythm, Normal S1 S2 Gastrointestinal: Normal bowel sounds, No tenderness Musculoskeletal: No tenderness Integumentary: No rashes Neurological: Normal speech, Normal strength at 5/5 x4 extr, Normal tone, Sensation intact, Normal affect - Studies Laboratory Data (last 24 hrs) 12/12/21 00:38: PT 10.0, INR 0.87, APTT 32.3 12/12/21 00:38: WBC 10.40, Hgb 13.6, Hct 40.5, Plt Count 329 12/12/21 00:38: Sodium 137, Potassium 4.0, BUN 11, Creatinine 0.99, Glucose 118 H Assessment and Plan - Problems (Diagnosis) (1) TIA (transient ischemic attack) Current Visit: Yes Status: Acute (2) History of TIA (transient ischemic attack) Current Visit: Yes Status: Acute (3) Right facial numbness Current Visit: Yes Status: Acute - Plan -patient's left sided facial numbess has improved and has no other neurologic deficits -head CT was negative. MRI in the morning. Dr. Flaherty consulting -patient given aspirin and decadron in the ED -monitor overnight DVT PPx: lovenox Code: Full Discharge Plan: Home Plan to discharge in: 24 Hours - Advance Directives Does patient have a Living Will: No Does patient have a Durable POA for Healthcare: No - Code Status/Comfort Care Code Status Assessed: Yes (Full) Critical Care: No Time Spent Managing Pts Care (In Minutes): 70
[2021-12-12 04:28] VITALS: BMI 40.8
[2021-12-12] MEDS ORDERED: ONDANSETRON 4 MG/2 ML VIAL IV PRN (04:28)
[2021-12-12] MEDS ORDERED: ACETAMINOPHEN 500 MG TAB PO PRN (04:28)
[2021-12-12 05:04] VITALS: O2SAT 95
[2021-12-12 05:16] LABS: Urine Appearance CLEAR (Clear); Urine Bilirubin NEGATIVE (Negative); Urine Blood TRACE (Negative); Urine Color YELLOW (Yellow); Urine Glucose NEGATIVE (Negative); Urine Protein NEGATIVE (Negative); Urine Specific Gravity >=1.030 (1.005-1.030); Urine Urobilinogen 0.2 mg/dL (0.2-1.0); Urine pH 5.5 (5.0-7.0)
[2021-12-12 05:27] LABS: Urine Microscopic Reflex ORDER UMIC
[2021-12-12 06:14] LABS: Urine Bacteria NONE SEEN /HPF (<20); Urine RBC NONE SEEN /HPF (NONE SEEN)
--- NOTE | 2021-12-12 07:48 | RAD REPORT ---
EXAM DESCRIPTION: Tania Single View12/12/2021 12:54 am CLINICAL HISTORY: Numbness COMPARISON: November 22, 2021 FINDINGS: The lungs appear clear of acute infiltrate. The heart is normal size IMPRESSION: No acute abnormalities displayed
[2021-12-12] MEDS ORDERED: ENOXAPARIN 40 MG/0.4 ML SQ SCH (09:00)
--- NOTE | 2021-12-12 10:38 | RAD REPORT ---
EXAM DESCRIPTION: CT - Ct Stroke Brain Wo Cont - 12/12/2021 6:29 am ADDENDUM #1 CODE STROKE PROTOCOL CONFERENCE CALL: The findings were verbally discussed via telephone conference with Dr. Nathan Lisa on 12/12/2021 1:01 AM [facility] [[email or web address] The results were acknowledged and understood. Electronically signed by: Edilson Castro MD 12/12/2021 1:01 AM HOSPITAL RECRUITER End of Addendum EXAM: CT Head Without Intravenous Contrast CLINICAL HISTORY: NUMBNESS TECHNIQUE: Axial computed tomography images of the head/brain without intravenous contrast. Sagitt al and coronal reformatted images were created and reviewed. This CT exam was performed using one o r more of the following dose reduction techniques: automated exposure control, adjustment of the mA and/or kV according to patient size, and/or use of iterative reconstruction technique. COMPARISON: CT Head dated 11/23/2021 FINDINGS: Brain: Unremarkable. No hemorrhage. No significant white matter disease. No edema. Ventricles: Unremarkable. No ventriculomegaly. Bones/joints: Unremarkable. No acute fracture. Soft tissues: Unremarkable. Sinuses: Minimal bilateral maxillary and right sphenoid sinus mucosal thickening. Mastoid air cells: Unremarkable as visualized. No mastoid effusion. IMPRESSION: No acute hemorrhage, focal mass or large territory infarction. Electronically signed by: Edilson Castro MD 12/12/2021 12:56 AM HOSPITAL RECRUITER Due to temporary technical issues with the PACS/Fluency reporting system, reports are being signed by the in house radiologist without review as a courtesy to ensure prompt reporting. The interpreting r adiologist is fully responsible for the content of the report.
--- NOTE | 2021-12-12 10:51 | RAD REPORT ---
EXAM DESCRIPTION: CTHead angio12/12/2021 6:27 am CLINICAL HISTORY: The patient is 51 years old and is Female; NUMBNESS TECHNIQUE: Axial computed tomographic angiography images of the head with intravenous contrast. Sa gittal and coronal reformatted images were created and reviewed. This CT exam was performed using o ne or more of the following dose reduction techniques: automated exposure control, adjustment of th e mA and/or kV according to patient size, and/or use of iterative reconstruction technique. MIP rec onstructed images were created and reviewed. COMPARISON: No relevant prior studies available. FINDINGS: Right internal carotid artery: No acute findings. Intracranial segment is patent with no significant stenosis. No aneurysm. Right anterior cerebral artery: Unremarkable. No occlusion or significant stenosis. No aneur ysm. Right middle cerebral artery: Unremarkable. No occlusion or significant stenosis. No aneurys m. Right posterior cerebral artery: Unremarkable. No occlusion or significant stenosis. No aneu rysm. Right vertebral artery: Unremarkable as visualized. Left internal carotid artery: No acute findings. Intracranial segment is patent with no signif icant stenosis. No aneurysm. Left anterior cerebral artery: Unremarkable. No occlusion or significant stenosis. No aneury sm. Left middle cerebral artery: Unremarkable. No occlusion or significant stenosis. No aneurysm . Left posterior cerebral artery: Unremarkable. No occlusion or significant stenosis. No aneur ysm. Left vertebral artery: Unremarkable as visualized. Basilar artery: Unremarkable. No occlusion or significant stenosis. No aneurysm. IMPRESSION: No occlusion or significant stenosis. No aneurysm. Electronically signed by: Mike Harvey MD 12/12/2021 2:13 AM INFORMATION ASSURANCE OFFICER Due to temporary technical issues with the PACS/Fluency reporting system, reports are being signed by the in house radiologist without review as a courtesy to ensure prompt reporting. The interpreting r adiologist is fully responsible for the content of the report.
[2021-12-12 13:20] VITALS: TEMP 97.5
--- NOTE | 2021-12-12 15:05 | RAD REPORT ---
EXAM DESCRIPTION: MRI - Brain Wo Cont - 12/12/2021 1:58 pm CLINICAL HISTORY: facial numbness COMPARISON: Head angio dated 12/12/2021 TECHNIQUE: Sagittal T1-weighted images were obtained along with PD/heavily T2-weighted and T2-FLAIR images. Axial DWI and ADC mapping sequences were also obtained along with coronal heavily T2-weighted images were obtained. FINDINGS: No intracranial hemorrhage, mass or acute infarction. There is no edema or shift of midlin e structures. No extra-axial fluid collections. Signal voids are seen as a normal finding in the ca r intracranial vessels. No significant white matter disease. Mastoid air cells and paranasal sinuses are clear. IMPRESSION: No acute intracranial abnormality. No evidence of acute infarct.
[2021-12-12 16:41] VITALS: BP 145/77
--- NOTE | 2021-12-12 19:02 | CON ---
Date of Consultation: 12/12/2021 Reason For Consultation: Consultation was called because of possible stroke. History Of Present Illness: Ms. Nicole is a 51-year-old right-handed patient, who comes t o [facility] with left facial numbness. She was at [facility] on 11/23/2021 with p ossible CVA symptoms in addition to headache. At that point, she had more extensive right-sided face , arm, and leg numbness, which she was treated with tPA as she was in the window for tPA and subseque nt brain MRI was not done, but CT scan and repeat CT scans were unremarkable. After that discharge, she was put on aspirin, atorvastatin 40 mg daily, Plavix 75 mg daily, folic acid 1 mg daily, and she has been compliant. She has not had a third event until the episode as mentioned above. The patient 's facial numbness had largely resolved by the time she got to the hospital and is not fairly signifi cant. Brain MRI is done and results are pending. Past Medical History: As noted including the transient ischemic attack and possible migraine with au ra. Past Surgical History: Cholecystectomy. Family History: Hypertension and lung disease in father, hypertension. Social History: No alcohol, tobacco, or IV drug use. Allergies: SULFA DRUGS. Review of Systems: Aside from mentioned above, no recent fevers, chills, nausea, vomiting, myalgias, arthralgias, headac he, weight change, rash, psychiatric complaints, gastrointestinal complaints, or genitourinary issues . Physical Examination: Vital Signs: Blood pressure 121/86 up to 149/93, pulse 85 to 88, respiratory rate 16 to 18, temperat ure 97.7, oxygen saturation 98%. General: Ms. Nicole is resting peacefully. She is in no acute distress. HEENT: She is normocephalic, atraumatic. Sclerae are anicteric. Oropharynx is pink and moist. Neck: Supple. Chest: Clear. Heart: Regular. Extremities: Show no clubbing, cyanosis, or edema. Neurological: She is alert and oriented to person, place, time, and situation. She has no expressiv e or receptive aphasias. Cranial nerves, subtle left-sided numbness compared to the right side, othe rwise intact cranial nerves. Motor 5/5 proximally and distally. Sensory exam intact in upper and lo wer extremities bilaterally. Coordination intact in upper and lower extremities. Reflexes 2+ in upp er and lower extremities. Coordination intact and gait good stance, right arm swing. Laboratory Studies: Complete blood count with differential is unremarkable. Coagulation panel is un remarkable. Chemistries show glucose up to 118, calcium 9.1, LDL cholesterol 36, HDL 62, cholesterol to HDL ratio 1.76. Sodium, potassium, chloride, and BUN all normal. Creatinine normal. Urinalysis shows trace blood, otherwise was normal. COVID-19 test is negative. Assessment: Ms. Nicole is a 51-year-old patient with a possible complicated migraine versus a trans ient ischemic attack for which she has received tPA in the past and that was on the 6 days of 12 of December. She comes back with some right facial numbness that has largely resolved. Her brain MRI is pending. Plan: 1.Follow up brain MRI. 2.Continue aspirin, Plavix, folic acid, statin. 3.DVT prophylaxis as indicated with Lovenox 40 mg subcutaneously daily. 4.The patient may be discharged home and follow up with Dr. Flaherty in clinic in 1 month. 5.She should maintain a headache diary and may benefit from possible migraine prophylaxis if she has more than 4 significant headaches or if she is encumbered by headache s for 15/30 days. DAVID/CR Voice ID: [id number] Report ID: [id number]
== END 2021-12-12 04:15 | disposition home or self-care (01) ==
LOC: ER 00:24 → ERHOLD 02:20 → 2ND 04:06
PROVIDERS: ADMIT Hospitalist; ATTEND Hospitalist
DX: G45.9 Transient cerebral ischemic attack, unspecified (principal); Z88.2 Allergy status to sulfonamides; Z20.822 Contact with and (suspected) exposure to COVID-19
CPT/HCPCS: 36415; 70450; 70496; 70551; 71045; 80048; 80061; 81003; 81015; 82947; 85025; 85610; 85730; 93005; 96374; 99285; G0378; J1100; J1650; Q9967; U0003

== ENCOUNTER 2023-04-07 12:00 | Emergency (ER) | payer BC ==
--- OUTSIDE RECORDS SUMMARY | 2023-04-07 12:03 | XMS REPORT | Continuity of Care Document ---
:1970 Author Organization [facility] t Address [address] [place] [address] Care Team Providers Name Role Phone MARIA DE JESUS LÓPEZ Primary Care Physician Unavailable VILLA WEBB Attending Clinician Unavailable Villa Webb DO Attending Clinician Doctor Unassigned, [place] Attending Clinician Unavailable RIAN RICCI Attending Clinician Unavailable Rian Gudino Attending Clinician Problems Condition Condition Condition Status Onset Resolution Last Treating Co mments Source Name Details Category Date Date Treatment Clinician Date No known No known Disease Unive rs active active ity of problems problems [facility] Allergies, Adverse Reactions, Alerts Allergy Allergy Status Severity Reaction(s) Onset Inactive Treating Comm ents Source Name Type Date Date Clinician SULFA Drug Active Unknown-Cmnt Univ ers (SULFONA Class 1-25 ity of MIDE 00:00: [place] ANTIBIOT 00 Medical ICS) Branch Sulfa Propensi Active Unknown - 0 Unive rs (Sulfona ty to See comments -25 it y of mide adverse 00:00: [place] Antibiot reaction 00 Medica l ics) s Branch NO KNOWN Drug Active Univers ALLERGIE Class ity of S [facility] Social History Social Habit Start Date Stop Date Quantity Comments Source Exposure to Not sure [facility] SARS-CoV-2 (event) Medica l Branch Tobacco use and 2021-11-11 2021-11-11 Never used [facility] [place] exposure 00:00:00 00:00:00 Medical Branch Sex Assigned At [birth year] [facility] 00:00:00 00:00:00 Medical Branch Smoking Status Start Date Stop Date Source Never smoker [facility] Branch Medications Ordered Filled Start Stop Current Ordering Indication Dosage Frequency Signature Comments Components Source Medication Medication Date Date Medication? Clinician (SIG) Name Name chlorhexidi Yes [id number] 15mL Swish and Univers ne 0.12 % 12-13 spit out ity of mouthwash 00:00: 15 mL 2 [place] 00 (two) Medical times Branch daily. methylPREDN Yes [id number] Take by Univers ISolone 2-26 mouth ity of (MEDROL, 00:00: SEE-INSTRU [place] as BRAD,) 4 mg 00 CTIONS. Medica l tablets follow Branch package directions clindamycin 2021- No [id number] 300mg Take 2 Univers 150 mg -26 03-06 capsules ity of capsule 00:00: 05:59 by mouth 4 [place] as 00 :00 (four) Medical times Branch daily for 7 days. bromphenira Yes [id number] 10mL Take 10 mL Univers mine-pseudo 1-25 by mouth 4 it y of ephedrine-D 00:[place] ([place] (BROMFED 00 times Medical DM) 2-30-10 daily as Bran ch mg/5 mL needed for syrup Congestion /Allergies . bromphenira Yes [id number] 10mL Take 10 mL Univers mine-pseudo 1-25 by mouth 4 it y of ephedrine-D 00:00[place] ([place] (BROMFED 00 times Medical DM) 2-30-10 daily as Bran ch mg/5 mL needed for syrup Congestion /Allergies . bromphenira Yes [id number] 10mL Take 10 mL Univers mine-pseudo 1-25 by mouth 4 it y of ephedrine-D 00:00[place] (four[place] (BROMFED 00 times Medical DM) 2-30-10 daily as Bran ch mg/5 mL needed for syrup Congestion /Allergies . amoxicillin 202- No [id number] 1{tbl} Take 1 Univers -clavulanat 1-25 02-02 tablet by it y of e 875-125 00:00: 05:59 mouth 2 [place] mg per 00 :00 (two) Medical tablet times Branch daily for 7 days. Vital Signs Vital Name Observation Time Observation Value Comments Source Systolic blood 2021-12-14 02:05:00 161 mm[Hg] [facility] Diastolic blood 2021-12-14 02:05:00 99 mm[facility]Hg[facility] 2021-12-14 02:05:00 84 /min Universi ty [facility] Body temperature 2021-12-14 02:05:00 37.06 Jenn [facility] Respiratory rate 2021-12-14 02:05:00 20 /min [facility] Body height 2021-12-14 02:05:00 167.6 cm Universi ty [facility] Body weight 2021-12-14 02:05:00 116.121 kg Universi ty [facility] BMI 2021-12-14 02:05:00 41.32 kg/m2 Universi ty [facility] Oxygen saturation in 2021-12-14 02:05:00 99 /min University of Arterial blood by [facility] Pulse oximetry [place] Systolic blood 2021-11-12 00:19:00 133 mm[facility]Hg[facility] blood 2021-11-12 00:19:00 86 mm[Hg] [facility] 2021-11-12 00:19:00 101 /min Universi ty [facility] Body temperature 2021-11-12 00:19:00 36.89 Jenn [facility] Respiratory rate 2021-11-12 00:19:00 18 /min [facility] Body height 2021-11-12 00:19:00 168.9 cm Universi ty [facility] Body weight 2021-11-12 00:19:00 108.863 kg Universi ty [facility] BMI 2021-11-12 00:19:00 38.16 kg/m2 Universi ty [facility] Oxygen saturation in 2021-11-12 00:19:00 98 /min University of Arterial blood by [facility] Pulse oximetry Branch Procedures Procedure Date / Time Performed Performing Clinician Sour e CONSENT/REFUSAL FOR 2021-12-14 01:56:50 Doctor Unassigned, No [facility] DIAGNOSIS AND Name [facility] TREATMENT Encounters Start End Encounter Admission Attending Care Care Encounter Source Date/Time Date/Time Type Type Clinicians Facility Department ID 2021-12-13 2021-12-13 Emergency X SINGER [facility] ERT [id number] Univers 20:10:00 20:53:00 VILLA roberta [facility] 2021-12-13 2021-12-13 Emergency Singer [facility] [id number] Univers 20:10:00 20:53:00 Villa SANCHEZ [id number] i ty [facility] [id number] [place] [facility] [id number] [facility] 084 Branch 2021-12-13 2021-12-13 Orders Doctor TRACY [id number] Univers 00:00:00 00:00:00 Only Unassigned, SARTHAK [id number] ity of [place] [facility] [id number] [place] as [id number] [facility] 009 Branch 2021-11-11 2021-11-11 Outpatient R RADHAMES [facility] [id number] Univers 18:20:00 18:50:43 [facility] 2021-11-11 2021-11-11 Urgent Radhames [facility] [id number] Univers 18:20:00 18:50:43 Care [facility] [id number] it y of [place] [id number] [place] as ISSA?BLEA [phone] [address] MEDICAL OFFICE BUILDING Results This patient has no known results.
[2023-04-07 13:03] LABS: Absolute Lymphocytes (CBC) 1.7 K/uL (0.7-4.9); Hematocrit 39.4 % (36.0-45.0); Lymphocytes % 24.7 % (15.3-44.8); MCV 91.9 fL (80-100); MPV 7.5 fL (7.6-11.3); RBC Red Blood Cell Count 4.29 M/uL (3.86-4.86)
[2023-04-07] MEDS ORDERED: NA CHLORIDE 0.9% 1,000 ML ONE (13:03)
[2023-04-07] MEDS ORDERED: FAMOTIDINE 20 MG/2 ML VIAL IV ONE (13:03)
[2023-04-07 13:09] LABS: Urine Bacteria None Seen /HPF (<20); Urine Bilirubin NEGATIVE (Negative); Urine Blood Negative (Negative); Urine Clarity Turbid (Clear); Urine Color Colorless (Yellow); Urine Glucose NEGATIVE (Negative); Urine Mucus Slight /HPF (None Seen); Urine Protein NEGATIVE (Negative); Urine RBC <5 /HPF (None Seen); Urine Urobilinogen Normal (Normal)
[2023-04-07 13:22] LABS: Albumin 3.5 g/dL (3.4-5.0); Bilirubin Total 0.2 mg/dL (0.2-1.0); Magnesium 2.2 mg/dL (1.6-2.4); Potassium 3.8 mEq/L (3.5-5.1); Protein, Total 7.6 g/dL (6.4-8.2)
--- NOTE | 2023-04-07 14:48 | RAD REPORT ---
EXAM DESCRIPTION: CT - Abdomen Pelvis W Contrast - 04/07/2023 1:47 pm CLINICAL HISTORY: ABD PAIN COMPARISON: Abdomen Pelvis W Contrast dated 11/09/2021 TECHNIQUE: Thin cut axial CT imaging of the abdomen and pelvis was performed following intravenous a dministration of 95 mL Isovue 300. Multiplanar reformats were generated and reviewed. All CT scans are performed using dose optimization technique as appropriate and may include automated exposure control or mA/KV adjustment according to patient size. FINDINGS: No suspicious findings in the lung bases. Stable left lower lobe subpleural 5 millimeter n odule. The liver, spleen, and adrenal glands show no suspicious findings. Hypoattenuating 18 millimeter focu s along the uncinate process of the pancreas, stable, and could represent a small cyst. Gallbladder w as surgically removed. No intra or extrahepatic biliary ductal dilation. Symmetric renal function is seen with no hydronephrosis or suspicious renal mass. No dilated bowel loops or bowel wall thickening. Appendix is unremarkable. No free air, free fluid or inflammatory stranding. No hernia, mass or bulky lymphadenopathy. The urinary bladder is without sig nificant finding. No suspicious bony findings. IMPRESSION: No acute intra-abdominal process. Stable 18 millimeter uncinate process hypoattenuating focus in the uncinate process of the pancreas, suggestive of a cystic lesion, not well characterized.
[2023-04-07] MEDS ORDERED: MORPHINE 4 MG/ML SYR ONE (14:55)
--- NOTE | 2023-04-07 16:27 | ER ---
Nurse's Notes [facility] Name: Brenda Nicole Age: 52 yrs Sex: Female : 1970 Arrival Date: 04/07/2023 Time: 12:00 Bed 16 Private MD: Diagnosis: UTI/ Urinary tract infection, site not specified;Unspecified renal colic Presentation: 04/07 12:33 Chief complaint: Patient states: L mid back pain radiating to L flank and LLQ, also ph reports nausea, symptoms started approx 1 week ago, worse today. Coronavirus screen: Vaccine status: Patient reports receiving the 2nd dose of the covid vaccine. Ebola Screen: No symptoms or risks identified at this time. Initial Sepsis Screen: Does the patient meet any 2 criteria? No. Patient's initial sepsis screen is negative. Does the patient have a suspected source of infection? No. Patient's initial sepsis screen is negative. Risk Assessment: Do you want to hurt yourself or someone else? Patient reports no desire to harm self or others. Onset of symptoms was April 07, 2023. 12:33 Method Of Arrival: Ambulatory ph 12:33 Acuity: ANKITA 3 ph Triage Assessment: 17:39 General: Appears in no apparent distress. Behavior is cooperative. Pain: Complains of db pain in back and abdomen. GI: Reports lower abdominal pain. 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 - Social history:: Smoking status: Patient denies any tobacco usage or history of. Screenin:42 [facility] ED Fall Risk Assessment (Adult) History of falling in the last 3 months, db including since admission No falls in past 3 months (0 pts) Confusion or Disorientation No (0 pts) Intoxicated or Sedated No (0 pts) Impaired Gait No (0 pts) Mobility Assist Device Used No (0 pt) Altered Elimination No (0 pt) Score/Fall Risk Level 0 - 2 = Low Risk Oriented to surroundings, Maintained a safe environment. Abuse screen: Denies threats or abuse. Denies injuries from another. Nutritional screening: No deficits noted. Tuberculosis screening: No symptoms or risk factors identified. Assessment: 13:30 Reassessment: Patient appears in no apparent distress at this time. Patient and/or db family updated on plan of care and expected duration. Pain level reassessed. Patient is alert, oriented x 3, equal unlabored respirations, skin warm/dry/pink. Reassessment: pt complains of back pain radiating to lower abdomen. Neuro: Level of Consciousness is awake, alert, obeys commands, Oriented to person, place, time, situation. 15:00 Reassessment: Patient appears in no apparent distress at this time. Patient and/or db family updated on plan of care and expected duration. Pain level reassessed. Patient is alert, oriented x 3, equal unlabored respirations, skin warm/dry/pink. 16:00 Reassessment: Patient appears in no apparent distress at this time. Patient and/or db family updated on plan of care and expected duration. Pain level reassessed. Patient is alert, oriented x 3, equal unlabored respirations, skin warm/dry/pink. 17:40 Reassessment: Patient appears in no apparent distress at this time. Patient and/or db family updated on plan of care and expected duration. Pain level reassessed. Patient is alert, oriented x 3, equal unlabored respirations, skin warm/dry/pink. Patient states symptoms have improved. General: Appears in no apparent distress. comfortable. 17:45 GI: Bowel sounds Abd is soft. db Vital Signs: 12:33 BP 166 / 94; Pulse 93; Resp 18; Temp 98.6; Pulse Ox 97% on R/A; Weight 117.93 kg; ph Height 5 ft. 6 in. ; Pain 8/10; 15:00 BP 158 / 92; Pulse 88; Resp 18; Pulse Ox 96% on R/A; db 17:00 BP 166 / 94; Pulse 84; Resp 16; Pulse Ox 97% on R/A; db 12:33 Body Mass Index 41.96 (117.93 kg, 167.64 cm) ph 12:33 Pain Scale: Adult ED Course: 12:07 Patient arrived in ED. mr 12:32 Fadumo Foreman, RN is Primary Nurse. ph 12:34 Triage completed. ph 12:34 Arm band placed on Patient placed in an exam room, on a stretcher. ph 12:37 Kelly Scales, [facility]TIER[facility] snw 12:37 Ian Waldron MD is Attending Physician. snw 12:45 Swati Keen, CARMELINA is Primary Nurse. db 13:30 Inserted saline lock: 22 gauge in left antecubital area, using aseptic technique. db 13:49 CT Abd/Pelvis - IV Contrast Only In Process Unspecified. EDMS 17:42 Patient has correct armband on for positive identification. Bed in low position. Call db light in reach. Side rails up X 1. Client placed on continuous cardiac and pulse oximetry monitoring. NIBP monitoring applied. 17:42 No provider procedures requiring assistance completed. IV discontinued, intact, db bleeding controlled, No redness/swelling at site. Administered Medications: 12:55 Drug: NS 0.9% IV 1000 ml Route: IV; Rate: 1 bolus; Site: left antecubital; db 17:37 Follow up: Response: No adverse reaction; IV Status: Completed infusion; IV Intake: db 1000ml 12:55 Drug: Famotidine IVP 20 mg Route: IVP; Site: left antecubital; db 17:38 Follow up: Response: No adverse reaction db 14:52 Drug: morphine IVP or IV 4 mg Route: IVP; Infused Over: 4 mins; Site: left antecubital; db 17:38 Follow up: Response: No adverse reaction db 16:57 Drug: Rocephin IV 1 grams Route: IV; Rate: calculated rate; Site: left antecubital; db 17:38 Follow up: Response: No adverse reaction; IV Status: Completed infusion; IV Intake: 50mldb 17:05 Drug: Ketorolac IVP 30 mg Route: IVP; Site: left antecubital; db 17:39 Follow up: Response: No adverse reaction db Medication: 17:42 VIS not applicable for this client. db Intake: 17:37 IV: 1000ml; Total: 1000ml. db 17:38 IV: 50ml; Total: 1050ml. db Outcome: 16:27 Discharge ordered by . snw 17:42 Discharged to home ambulatory, with family. db 17:42 Condition: stable 17:42 Discharge instructions given to patient, Instructed on discharge instructions, follow up and referral plans. Prescriptions given X 3. 17:46 Patient left the ED. db Signatures: Dispatcher [employer] EDMS Kelly Scales, ANNIE-C PUTTIER-Csnw ParnellLashawn bernal Fadumo Meeks RN RN Swati Peres RN RN db
--- NOTE | 2023-04-07 16:28 | EDPHYS ---
Physician Documentation [facility] Name: Brenda Nicole Age: 52 yrs Sex: Female : 1970 Arrival Date: 04/07/2023 Time: 12:00 Bed 16 Private MD: ED Physician Ian Waldron HPI: 04/07 12:47 This 52 yrs old Female presents to ER via Ambulatory with complaints of Abdominal Pain, snw Back Pain. 12:47 The patient presents with abdominal pain in the left upper quadrant, in the left lower snw quadrant. Onset: The symptoms/episode began/occurred 1 week(s) ago, and became persistent. The symptoms radiate to left lower quadrant and posterior aspect of left lateral abdomen. Associated signs and symptoms: Pertinent positives: nausea. The symptoms are described as constant. Severity of pain: At its worst the pain was moderate. The patient has not experienced similar symptoms in the past. It is unknown whether or not the patient has recently seen a physician. 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 - Social history:: Smoking status: Patient denies any tobacco usage or history of. ROS: 12:48 Constitutional: Negative for fever, chills, and weight loss, Eyes: Negative for injury, snw pain, redness, and discharge, ENT: Negative for injury, pain, and discharge, Neck: Negative for injury, pain, and swelling, Cardiovascular: Negative for chest pain, palpitations, and edema, Respiratory: Negative for shortness of breath, cough, wheezing, and pleuritic chest pain, : Negative for injury, bleeding, discharge, and swelling, MS/Extremity: Negative for injury and deformity, Skin: Negative for injury, rash, and discoloration, Neuro: Negative for headache, weakness, numbness, tingling, and seizure, Psych: Negative for depression, anxiety, suicide ideation, homicidal ideation, and hallucinations. 12:48 Abdomen/GI: Positive for abdominal pain, abdominal cramps. 12:48 Back: Positive for flank pain, on the left. Exam: 12:46 Constitutional: This is a well developed, well nourished patient who is awake, alert, snw and in no acute distress. Head/Face: Normocephalic, atraumatic. Eyes: Pupils equal round and reactive to light, extra-ocular motions intact. Lids and lashes normal. Conjunctiva and sclera are non-icteric and not injected. Cornea within normal limits. Periorbital areas with no swelling, redness, or edema. ENT: Nares patent. No nasal discharge, no septal abnormalities noted. Tympanic membranes are normal and external auditory canals are clear. Oropharynx with no redness, swelling, or masses, exudates, or evidence of obstruction, uvula midline. Mucous membranes moist. Neck: Trachea midline, no thyromegaly or masses palpated, and no cervical lymphadenopathy. Supple, full range of motion without nuchal rigidity, or vertebral point tenderness. No Meningismus. Chest/axilla: Normal chest wall appearance and motion. Nontender with no deformity. No lesions are appreciated. Cardiovascular: Regular rate and rhythm with a normal S1 and S2. No gallops, murmurs, or rubs. Normal PMI, no JVD. No pulse deficits. Respiratory: Lungs have equal breath sounds bilaterally, clear to auscultation and percussion. No rales, rhonchi or wheezes noted. No increased work of breathing, no retractions or nasal flaring. Skin: Warm, dry with normal turgor. Normal color with no rashes, no lesions, and no evidence of cellulitis. MS/ Extremity: Pulses equal, no cyanosis. Neurovascular intact. Full, normal range of motion. Neuro: Awake and alert, GCS 15, oriented to person, place, time, and situation. Cranial nerves II-XII grossly intact. Motor strength 5/5 in all extremities. Sensory grossly intact. Cerebellar exam normal. Normal gait. Psych: Awake, alert, with orientation to person, place and time. Behavior, mood, and affect are within normal limits. 12:46 Abdomen/GI: Inspection: obese Bowel sounds: normal, Palpation: moderate abdominal tenderness, in the posterior aspect of left lateral abdomen and left lower quadrant. 12:46 Back: CVA tenderness, that is moderate, is noted on the left. Vital Signs: 12:33 BP 166 / 94; Pulse 93; Resp 18; Temp 98.6; Pulse Ox 97% on R/A; Weight 117.93 kg; ph Height 5 ft. 6 in. ; Pain 8/10; 15:00 BP 158 / 92; Pulse 88; Resp 18; Pulse Ox 96% on R/A; db 17:00 BP 166 / 94; Pulse 84; Resp 16; Pulse Ox 97% on R/A; db 12:33 Body Mass Index 41.96 (117.93 kg, 167.64 cm) ph 12:33 Pain Scale: Adult ph MDM: 12:37 Patient medically screened. [facility] 12:48 Differential diagnosis: diverticulitis, gastritis, pancreatitis, Pyelonephritis, snw Ureterolithiasis, urinary tract infection. Data reviewed: vital signs, nurses notes. 16:25 I considered the following discharge prescriptions or medication management in the [facility] emergency department Medications were administered in the Emergency Department. See MAR. Counseling: I had a detailed discussion with the patient and/or guardian regarding: the historical points, exam findings, and any diagnostic results supporting the discharge/admit diagnosis, the presence of at least one elevated blood pressure reading (>120/80) during this emergency department visit, lab results, radiology results, the need for outpatient follow up, for definitive care, to return to the emergency department if symptoms worsen or persist or if there are any questions or concerns that arise at home. Response to treatment: the patient's symptoms have mildly improved after treatment. Special discussion: Based on the patient's Hx, exam, and Dx evaluation, there is no indication for emergent surgery or inpatient Tx. It is understood by the patient/guardian that if the Sx's persist or worsen they need to return immediately for re-evaluation. Based on the history and exam findings, there is no indication for further emergent testing or inpatient evaluation. I discussed with the patient/guardian the need to see the primary care provider for further evaluation of the symptoms. 04/07 12:38 Order name: CBC with Diff; Complete Time: 13:13 w 04/07 12:38 Order name: CMP; Complete Time: 13:23 snw 04/07 12:38 Order name: Lipase; Complete Time: 13:23 w 04/07 12:38 Order name: Urinalysis w/ reflexes; Complete Time: 13:13 w 06/21 12:38 Order name: Magnesium; Complete Time: 13:23 snw 04/07 13:12 Order name: Urine Culture EDMS 04/07 12:38 Order name: CT Abd/Pelvis - IV Contrast Only; Complete Time: 14:49 snw 04/07 12:38 Order name: IV Saline Lock; Complete Time: 13:05 snw 04/07 12:38 Order name: Labs collected and sent; Complete Time: 13:06 snw Administered Medications: 12:55 Drug: NS 0.9% IV 1000 ml Route: IV; Rate: 1 bolus; Site: left antecubital; db 17:37 Follow up: Response: No adverse reaction; IV Status: Completed infusion; IV Intake: db 1000ml 12:55 Drug: Famotidine IVP 20 mg Route: IVP; Site: left antecubital; db 17:38 Follow up: Response: No adverse reaction db 14:52 Drug: morphine IVP or IV 4 mg Route: IVP; Infused Over: 4 mins; Site: left antecubital; db 17:38 Follow up: Response: No adverse reaction db 16:57 Drug: Rocephin IV 1 grams Route: IV; Rate: calculated rate; Site: left antecubital; db 17:38 Follow up: Response: No adverse reaction; IV Status: Completed infusion; IV Intake: 50mldb 17:05 Drug: Ketorolac IVP 30 mg Route: IVP; Site: left antecubital; db 17:39 Follow up: Response: No adverse reaction db Disposition: 21:24 Co-signature as Attending Physician, Ian Waldron MD I reviewed the patient's care rt provided by the Advanced Practice Provider and agree with the diagnosis and treatment plan. Disposition Summary: 04/07/23 16:27 Discharge Ordered Location: Home snw Condition: Stable snw Diagnosis - UTI/ Urinary tract infection, site not specified snw - Unspecified renal colic snw Followup: snw - With: Emergency Department - When: As needed - Reason: Worsening of condition Followup: snw - With: Private Physician - When: 2 - 3 days - Reason: Recheck today's complaints, Continuance of care, Re-evaluation by your physician Discharge Instructions: - Discharge Summary Sheet snw - Uterine Fibroids snw - Renal Colic snw - Urinary Tract Infection, Adult snw - Dietary Guidelines to Help Prevent Kidney Stones snw - Rehydration, Adult snw Forms: - Work release form snw - Medication Reconciliation Form snw - Thank You Letter snw - Antibiotic Education snw - Prescription Opioid Use snw Prescriptions: - Cipro 500 mg Oral Tablet - take 1 tablet by ORAL route every 12 hours for 7 days; 14 tablet; Refills: 0, snw Product Selection Permitted - Tramadol 50 mg Oral Tablet - take 1 tablet by ORAL route every 8 hours as needed; 12 tablet; Refills: 0, snw Product Selection Permitted - promethazine 25 mg Oral Tablet - take 1 tablet by ORAL route every 6 hours As needed; 20 tablet; Refills: 0, snw Product Selection Permitted Signatures: Dispatcher [employer] EDMS Kelly Scales, CLOTH SHRINKING TESTER-C CLOTH SHRINKING TESTER-Csnw Fadumo Foreman, RN RN Swati Peres, RN RN db Ian Waldron MD MD rt
[2023-04-07] MEDS ORDERED: CEFTRIAXONE 1000 MG/VIAL ONE (17:02)
[2023-04-07] MEDS ORDERED: NA CHLORIDE 0.9% 50 ML ONE (17:03)
[2023-04-07] MEDS ORDERED: KETOROLAC 30 MG/ML INJ ONE (17:39)
[2023-04-07 17:50] VITALS: TEMP 98.6
[2023-04-07 17:52] VITALS: BP 166/94; O2SAT 97
== END 2023-04-07 17:46 | disposition home or self-care (01) ==
LOC: ER 12:00
DX: N39.0 Urinary tract infection, site not specified (principal); N23 Unspecified renal colic; Z88.2 Allergy status to sulfonamides; Z86.73 Personal history of transient ischemic attack (TIA), and cerebral infarction without residual deficits
CPT/HCPCS: 87088; 85025; 81001; 87086; 36415; 83735; 83690; 80053; 74177; Q9967; J7030; J0696

== ENCOUNTER 2024-10-15 07:43 | Emergency (ER) | payer BC ==
--- NOTE | 2024-10-15 08:53 | RAD REPORT ---
EXAM: Chest Single View HISTORY: COUGH COMPARISON: 12/12/2021 FINDINGS: LUNGS/PLEURA: The lungs are clear. No pleural effusions or pneumothorax. No pulmonary edema. MEDIASTINUM: The mediastinal silhouette is within normal limits. CARDIAC: Within normal limits. UPPER ABDOMEN: No significant abnormality. BONES: No acute fracture. LINES/TUBES/OTHER: N/A IMPRESSION: No evidence of acute cardiopulmonary disease.
[2024-10-15 09:06] LABS: SARS-CoV-2 Antigen CONTROL BLUE LINE VIS/BG OK; SARS-CoV-2 Antigen Rapid Res Negative (Negative)
--- NOTE | 2024-10-15 09:53 | EDPHYS ---
Physician Documentation [facility] Name: Brenda Nicole Age: 54 yrs Sex: Female : 1970 Arrival Date: 10/15/2024 Time: 07:43 Bed 17 Private MD: ED Physician Nathan Lisa HPI: 10/15 08:47 This 54 yrs old Female presents to ER via Ambulatory with complaints of Flu Symptoms. rn 08:47 The patient or guardian reports cough, flu symptoms. Onset: The symptoms/episode rn began/occurred 3 day(s) ago. Severity of symptoms: At their worst the symptoms were mild, in the emergency department the symptoms are unchanged. Modifying factors: The symptoms are alleviated by nothing, the symptoms are aggravated by nothing. The patient has not experienced similar symptoms in the past. Patient reports cough and flulike symptoms for 2 or 3 days. Subjective fever and chills. Negative for shortness of breath. Patient reports multiple people that have sick with similar symptoms. No hemoptysis. No chronic lung problems.. 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 - Infectious Disease History:: Denies. - Family history:: not pertinent. - Hospitalizations: : No recent hospitalization is reported. - Social history:: Smoking status: Patient denies any tobacco usage or history of. ROS: 08:47 Constitutional: Positive for subjective fever and chills ENT: Negative for injury, rn pain, and discharge, Neck: Negative for injury, pain, and swelling, Cardiovascular: Negative for chest pain, palpitations, and edema, Respiratory: Positive for cough Abdomen/GI: Negative for abdominal pain, nausea, vomiting, diarrhea, and constipation, Back: Negative for injury and pain, MS/Extremity: Negative for injury and deformity, Skin: Negative for injury, rash, and discoloration, Neuro: Positive for headache and generalized weakness Exam: 08:47 Constitutional: This is a well developed, well nourished patient who is awake, alert, rn and in no acute distress. Head/Face: Normocephalic, atraumatic. ENT: Moist mucous membranes, no stridor Cardiovascular: Regular rate and rhythm. No pulse deficits. Respiratory: No increased work of breathing, no retractions or nasal flaring. Abdomen/GI: Soft, non-tender Skin: Warm, dry with normal turgor. Normal color with no rashes, no lesions, and no evidence of cellulitis. MS/ Extremity: Pulses equal, no cyanosis. Neurovascular intact. Full, normal range of motion. Equal circumference. Vital Signs: 07:53 BP 142 / 87; Pulse 96; Resp 17; Pulse Ox 100% on R/A; Weight 117.93 kg; Height 5 ft. 6 ss in. ; 07:59 Temp 98.3(O); em1 10:06 BP 117 / 59; Pulse 74; Resp 16; Pulse Ox 100% on R/A; Pain 0/10; ll1 07:53 Body Mass Index 41.96 (117.93 kg, 167.64 cm) ss 10:06 Pain Scale: Adult ll1 MDM: 07:47 Medical Screening Exam initiated rn 09:52 Differential Diagnosis: Bronchitis Influenza Upper Respiratory Infection Viral Syndrome rn Pneumonia. Data reviewed: vital signs, nurses notes, lab test result(s), radiologic studies, plain films, and as a result, I will discharge patient. Counseling: I had a detailed discussion with the patient and/or guardian regarding the historical points, exam findings, and any diagnostic results supporting the discharge/admit diagnosis, lab results, radiology results, the need for outpatient follow up, to return to the emergency department if symptoms worsen or persist or if there are any questions or concerns that arise at home. Response to treatment: the patient's symptoms have mildly improved after treatment. Special discussion: I discussed with the patient/guardian in detail that at this point there is no indication for admission to the hospital. It is understood, however, that if the symptoms persist or worsen the patient needs to return immediately for re-evaluation. 10/15 07:47 Order name: Flu; Complete Time: 09:34 rn 10/15 07:47 Order name: SARS-COV-2 Antigen Rapid; Complete Time: 09:34 rn 10/15 07:59 Order name: XRAY Chest (1 view); Complete Time: :34 rn Administered Medications: No medications were administered Disposition Summary: 10/15/24 09:53 Discharge Ordered Notes: Location: Home rn Problem: new rn Symptoms: have improved rn Condition: Stable rn Diagnosis - Influenza due to other identified influenza virus with other respiratory rn manifestations Followup: rn - With: Private Physician - When: As needed - Reason: Recheck today's complaints, Re-evaluation by your physician Discharge Instructions: - Influenza, Adult rn - Discharge Summary Sheet ll1 Forms: - Medication Reconciliation Form rn - Antibiotic leadership program internship - Prescription Opioid Use rn - Patient Portal Instructions rn - Leadership Thank You Letter rn - Work release form ll1 Prescriptions: - Tamiflu 75 mg Oral capsule - take 1 tablet ORAL route every 12 hours for 5 days; 10 tablet; Refills: 0, rn Product Selection Permitted Signatures: Dispatcher [employer] EDMI Nathan Lisa MD MD rn Blanchard, Shelby, RN RN ss Lewis, Lynsay, RN RN ll1 Corrections: (The following items were deleted from the chart) 07:48 07:48 Influenza Screen (A \T\ B)+BA.LAB.BRZ ordered. EDMI EDMS 07:48 07:48 SARS-COV-2 Antigen Rapid+I.LAB.BRZ ordered. [facility] EDMS 08:48 08:47 Constitutional: Negative for fever, chills, and weight loss, ENT: Negative for rn injury, pain, and discharge, Neck: Negative for injury, pain, and swelling, Cardiovascular: Negative for chest pain, palpitations, and edema, Respiratory: Positive for cough Abdomen/GI: Negative for abdominal pain, nausea, vomiting, diarrhea, and constipation, Back: Negative for injury and pain, MS/Extremity: Negative for injury and deformity, Skin: Negative for injury, rash, and discoloration, Neuro: Positive for headache and generalized weakness rn
--- NOTE | 2024-10-15 09:53 | ER ---
Nurse's Notes [facility] Name: Brenda Nicole Age: 54 yrs Sex: Female : 1970 Arrival Date: 10/15/2024 Time: 07:43 Bed 17 Private MD: Diagnosis: Influenza due to other identified influenza virus with other respiratory manifestations Presentation: 10/15 07:53 Chief complaint: Patient states: cough, ear pain, sore throat and body aches that began ss 2-3 days ago. Coronavirus screen: Client denies travel out of the [place] in the last 14 days. Ebola Screen: Patient denies exposure to infectious person. Patient denies travel to an Ebola-affected area in the 21 days before illness onset. Initial Sepsis Screen: Does the patient meet any 2 criteria? No. Patient's initial sepsis screen is negative. Does the patient have a suspected source of infection? No. Patient's initial sepsis screen is negative. Risk Assessment: Do you want to hurt yourself or someone else? Patient reports no desire to harm self or others. Onset of symptoms was September 2024. 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 - Infectious Disease History:: Denies. - Family history:: not pertinent. - Hospitalizations: : No recent hospitalization is reported. - Social history:: Smoking status: Patient denies any tobacco usage or history of. Screenin:15 [facility] ED Fall Risk Assessment (Adult) History of falling in the last 3 months, ll1 including since admission No falls in past 3 months (0 pts) Confusion or Disorientation No (0 pts) Intoxicated or Sedated No (0 pts) Impaired Gait No (0 pts) Mobility Assist Device Used No (0 pt) Altered Elimination No (0 pt) Score/Fall Risk Level 0 - 2 = Low Risk Maintained a safe environment, Hourly rounding (assess needs \T\ fall precautionary measures) done. Abuse screen: Denies threats or abuse. Nutritional screening: No deficits noted. Tuberculosis screening: No symptoms or risk factors identified. Assessment: 08:14 General: Appears uncomfortable, Behavior is calm, cooperative, appropriate for age. ll1 Pain: Complains of pain in head Quality of pain is described as aching. Neuro: Reports headache. Respiratory: Reports cough that is productive. EENT: Reports nasal discharge. 08:58 Reassessment: No changes from previously documented assessment. visit from medical 1 student. 10:06 Reassessment: No changes from previously documented assessment. Patient and/or family ll1 updated on plan of care and expected duration. Pain level reassessed. Patient is alert, oriented x 3, equal unlabored respirations, skin warm/dry/pink. Patient states feeling better. Vital Signs: 07:53 BP 142 / 87; Pulse 96; Resp 17; Pulse Ox 100% on R/A; Weight 117.93 kg; Height 5 ft. 6 ss in. ; 07:59 Temp 98.3(O); em1 10:06 BP 117 / 59; Pulse 74; Resp 16; Pulse Ox 100% on R/A; Pain 0/10; ll1 07:53 Body Mass Index 41.96 (117.93 kg, 167.64 cm) ss 10:06 Pain Scale: Adult ll1 ED Course: 07:45 Patient arrived in ED. mr 07:47 Nathan Lisa MD is Attending Physician. rn 07:54 Triage completed. ss 07:54 Arm band placed on right wrist. ss 08:04 Martin Bower, RN is Primary Nurse. ll1 08:14 SARS-COV-2 Antigen Rapid Sent. ll1 08:14 Flu Sent. ll1 08:15 Patient has correct armband on for positive identification. Bed in low position. ll1 Provided Education on: ER procedures and process. Client placed on continuous cardiac and pulse oximetry monitoring. NIBP monitoring applied. 08:41 XRAY Chest (1 view) In Process Unspecified. EDMS 10:06 No provider procedures requiring assistance completed. Patient did not have IV access ll1 during this emergency room visit. Administered Medications: No medications were administered Medication: 08:16 VIS not applicable for this client. ll1 Outcome: 09:53 Discharge ordered by . rn 10:06 Discharged to home ambulatory, ll1 10:06 Condition: stable 10:06 Discharge instructions given to patient, Instructed on discharge instructions, follow up and referral plans. medication usage, Demonstrated understanding of instructions, follow-up care, medications, Prescriptions given X 1, 10:07 Patient left the ED. ll1 Signatures: Dispatcher [employer] EDMS Lashawn Parnell, Reg Reg mr Nathan Lisa MD MD rn Martinez, Eric em1 Susu Connolly RN RN ss Lewis, Lynsay, RN RN [facility]
[2024-10-15 10:32] VITALS: O2SAT 100
[2024-10-15 10:33] VITALS: TEMP 98.3
[2024-10-15 10:35] VITALS: BP 117/59
== END 2024-10-15 10:07 | disposition home or self-care (01) ==
LOC: ER 07:43
DX: J10.1 Influenza due to other identified influenza virus with other respiratory manifestations (principal); Z11.52 Encounter for screening for COVID-19
CPT/HCPCS: 36415; 71045; 87804; 87811; 99283

== ENCOUNTER 2024-10-24 12:15 | Emergency (ER) | payer BC ==
--- OUTSIDE RECORDS SUMMARY | 2024-10-24 12:18 | XMS REPORT | Continuity of Care Document ---
Author Name Unknown Address [address] [facility] [place] [address] [facility] thconnect Address [address] [facility] [address] [place] [address] Care Team Providers Care Computer Systems Security Administrator Name Role Phone Kayla Kunz Primary Care Physician Kayla Kunz Attending Clinician Unavailable Dee Weir Attending Clinician [phone] DEE CORADO Attending Clinician Unavailable Payers Payer Name Policy Type Policy Number Effective Date Expirati on Date Source Problems Condition Name Condition Details Condition Category Status Onset Date Resolution Date Last Treatment Date Treating Clinician Comments Source [id number] Screening mammogram, encounter for Problem [facility] [id number] S/P left knee arthroscop y Problem [facility] [id number] COVID-19 long hauler Problem [facility] [id number] Deviated septum Problem [facility] [id number] Acute pain of left knee Problem [facility] [id number] Obesity, Class III, BMI 40-49.9 (morbid obesity) Problem [facility] [id number] Pain, joint, knee, left Problem [facility] [id number] Sciatic pain, left Problem [facility] [id number] Complex tear of medial meniscus of left knee as current injury, subsequent encounter Problem [facility] [id number] Left flank pain Problem [facility] Allergies, Adverse Reactions, Alerts Allergy Name Allergy Type Status Severity Reaction(s) Onset Date Inactive Date Treating Clinician Comments Source Sulfa (Sulfona mide Antibiot ics) Propensi ty to adverse reaction s Active Unknown - See comments 11-11 00:00: 00 [facility] SULFA (SULFONA MIDE ANTIBIOT ICS) Drug Class Active Unknown-Cmnt 11-11 00:00: 00 [facility] Substanc e with sulfonam nazario structur e and antibact erial mechanis m of action (substan ce) Substanc e with sulfonam nazario structur e and antibact erial mechanis m of action (substan ce) Active tongue swelling [facility] Social History Social Habit Start Date Stop Date Quantity Comments Source History of Tobacco Use [facility] Sex Assigned At [facility] Tobacco use and exposure 2021-11-11 00:00:00 2021-11-11 00:00:00 Smokeless tobacco non-user [facility] Smoking Status Start Date Stop Date Source Never Smoker [facility] Medications Ordered Medication Name Filled Medication Name Start Date Stop Date Current Medication? Ordering Clinician Indication Dosage Frequency Signature (SIG) Comments Components Source Amoxicillin 875 MG Amoxicillin 875 MG 10-23 00:00: 00 No 1{table t} BID Amoxicilli n 875 MG ketorolac (TORADOL) injection 15 mg 04-10 14:47: 00 04-10 15:15 :00 No 15mg 15 mg, Slow IV Push, ONCE, 1 dose, On 04/10/23 at 1000, CLAUDIA [facility] methocarbam oL (ROBAXIN) tablet 500 mg 04-10 14:47: 00 04-10 15:15 :00 No 500mg 500 mg, Oral, ONCE, 1 dose, On 04/10/23 at 1000, CLAUDIA [facility] methocarbam oL 500 mg tablet 04-10 00:00: 00 Yes [id number] 500mg Take 1 tablet by mouth 3 (three) times daily as needed for Pain (scale 7-10). [facility] ibuprofen 600 mg tablet 04-10 00:00: 00 Yes [id number] 600mg Take 1 tablet by mouth every 8 (eight) hours as needed for Pain (scale 4-6). [facility] lidocaine 5 % (700 mg/patch) patch 04-10 00:00: 00 Yes [id number] 1{patch } Apply 1 Patch to area(s) in the morning. [facility] chlorhexidi ne 0.12 % mouthwash 12-13 00:00: 00 Yes [id number] 15mL Swish and spit out 15 mL 2 (two) times daily. [facility] methylPREDN ISolone (MEDROL, BRAD,) 4 mg tablets 12-13 00:00: 00 Yes [id number] Take by mouth SEE-INSTRU CTIONS. follow package directions [facility] bromphenira mine-pseudo ephedrine-D M (BROMFED DM) 2-30-10 mg/5 mL syrup 11-11 00:00: 00 Yes [id number] 10mL Take 10 mL by mouth 4 (four) times daily as needed for Congestion /Allergies . [facility] Immunizations Ordered Immunization Name Filled Immunization Name Date Status Comments Source Flucelvax (ccIIV4) - MDV - 0.5mL Flucelvax (ccIIV4) - MDV - 0.5mL Unknown Completed [facility] Pfizer COVID-19 Vaccine Pfizer COVID-19 Vaccine Unknown Completed [facility] Flucelvax (ccIIV4) - MDV - 0.5mL Flucelvax (ccIIV4) - MDV - 0.5mL Unknown Completed [facility] Pfizer COVID-19 Vaccine Pfizer COVID-19 Vaccine Unknown Completed [facility] Flucelvax (ccIIV4) - MDV - 0.5mL Flucelvax (ccIIV4) - MDV - 0.5mL Unknown Completed [facility] Pfizer COVID-19 Vaccine Pfizer COVID-19 Vaccine Unknown Completed [facility] Flublok (RIV4) - SDS - 0.5mL Flublok (RIV4) - SDS - 0.5mL Unknown Completed [facility] Shingrix Shingrix Unknown Completed [facility] Flucelvax - multidose vial Flucelvax - multidose vial Unknown Completed [facility] Pfizer COVID-19 Vaccine Pfizer COVID-19 Vaccine Unknown Completed [facility] Flucelvax (ccIIV4) - MDV - 0.5mL Flucelvax (ccIIV4) - MDV - 0.5mL Unknown Completed [facility] Pfizer COVID-19 Vaccine Pfizer COVID-19 Vaccine Unknown Completed [facility] Flucelvax (ccIIV4) - MDV - 0.5mL Flucelvax (ccIIV4) - MDV - 0.5mL Unknown Completed [facility] Pfizer COVID-19 Vaccine Pfizer COVID-19 Vaccine Unknown Completed [facility] Flucelvax (ccIIV4) - MDV - 0.5mL Flucelvax (ccIIV4) - MDV - 0.5mL Unknown Completed [facility] Pfizer COVID-19 Vaccine Pfizer COVID-19 Vaccine Unknown Completed [facility] Flucelvax (ccIIV4) - MDV - 0.5mL Flucelvax (ccIIV4) - MDV - 0.5mL Unknown Completed [facility] Pfizer COVID-19 Vaccine Pfizer COVID-19 Vaccine Unknown Completed [facility] Flucelvax (ccIIV4) - MDV - 0.5mL Flucelvax (ccIIV4) - MDV - 0.5mL Unknown Completed [facility] Pfizer COVID-19 Vaccine Pfizer COVID-19 Vaccine Unknown Completed [facility] Vital Signs Vital Name Observation Time Observation Value Comments Serg james height 2024-10-23 11:20:00 65 [in_i] Commo n [facility] weight 2024-10-23 11:20:00 260 [lb_av] Comm on [facility] bmi 2024-10-23 11:20:00 43.26 kg/m2 Comm on [facility] oximetry 2024-06-07 15:00:00 97 % [facility] respiratory rate 2024-06-07 15:00:00 18 /min [facility] blood pressure systolic 2024-06-07 15:00:00 138 mm[Hg] [facility] blood pressure diastolic 2024-06-07 15:00:00 76 mm[Hg] [facility] height 2024-06-07 15:00:00 65 [in_i] Commo n [facility] weight 2024-06-07 15:00:00 264.4 [lb_av] Co [facility] temperature 2024-06-07 15:00:00 97.7 [degF] Com [facility] bmi 2024-06-07 15:00:00 43.99 kg/m2 Comm on [facility] height 2024-02-23 13:30:00 65 [in_i] Commo n [facility] weight 2024-02-23 13:30:00 259.6 [lb_av] Co [facility] temperature 2024-02-23 13:30:00 97.8 [degF] Com [facility] bmi 2024-02-23 13:30:00 43.19 kg/m2 Comm on [facility] blood pressure systolic 2024-02-23 13:30:00 120 mm[Hg] [facility] blood pressure diastolic 2024-02-23 13:30:00 80 mm[Hg] [facility] height 2024-02-03 09:15:00 65 [in_i] Commo n [facility] weight 2024-02-03 09:15:00 260 [lb_av] Comm on [facility] bmi 2024-02-03 09:15:00 43.26 kg/m2 Comm on [facility] blood pressure systolic 2024-02-03 09:15:00 123 mm[Hg] [facility] blood pressure diastolic 2024-02-03 09:15:00 76 mm[Hg] [facility] height 2024-01-13 09:00:00 65 [in_i] Commo n [facility] weight 2024-01-13 09:00:00 260 [lb_av] Comm on [facility] bmi 2024-01-13 09:00:00 43.26 kg/m2 Comm on [facility] blood pressure systolic 2024-01-13 09:00:00 123 mm[Hg] [facility] blood pressure diastolic 2024-01-13 09:00:00 74 mm[Hg] [facility] height 2023-10-25 13:20:00 65 [in_i] Commo n [facility] weight 2023-10-25 13:20:00 260.6 [lb_av] Co mmon [facility] temperature 2023-10-25 13:20:00 98.1 [degF] Com mon [facility] bmi 2023-10-25 13:20:00 43.36 kg/m2 Comm on [facility] oximetry 2023-10-25 13:20:00 95 % [facility] respiratory rate 2023-10-25 13:20:00 18 /min [facility] blood pressure systolic 2023-10-25 13:20:00 122 mm[Hg] [facility] blood pressure diastolic 2023-10-25 13:20:00 84 mm[Hg] [facility] height 2023-10-25 13:20:00 65 [in_i] Commo n [facility] weight 2023-10-25 13:20:00 260.6 [lb_av] Co mmon [facility] temperature 2023-10-25 13:20:00 98.1 [degF] Com [facility] bmi 2023-10-25 13:20:00 43.36 kg/m2 Comm on [facility] oximetry 2023-10-25 13:20:00 95 % Commo n [facility] respiratory rate 2023-10-25 13:20:00 18 /min [facility] blood pressure systolic 2023-10-25 13:20:00 122 mm[Hg] [facility] blood pressure diastolic 2023-10-25 13:20:00 84 mm[Hg] [facility] height 2023-04-26 15:40:00 63 [in_i] Commo n [facility] weight 2023-04-26 15:40:00 250.6 [lb_av] Co mmon [facility] temperature 2023-04-26 15:40:00 97.3 [degF] Com mon [facility] bmi 2023-04-26 15:40:00 44.39 kg/m2 Comm on [facility] oximetry 2023-04-26 15:40:00 95 % Commo n [facility] respiratory rate 2023-04-26 15:40:00 16 /min [facility] blood pressure systolic 2023-04-26 15:40:00 137 mm[Hg] [facility] blood pressure diastolic 2023-04-26 15:40:00 75 mm[Hg] [facility] Systolic blood pressure 2023-04-10 16:00:00 122 mm[Hg] [facility] Diastolic blood pressure 2023-04-10 16:00:00 67 mm[Hg] [facility] Heart rate 2023-04-10 16:00:00 60 /min [facility] Respiratory rate 2023-04-10 16:00:00 16 /min [facility] Oxygen saturation in Arterial blood by Pulse oximetry 2023-04-10 16:00:00 95 /min [facility] Body temperature 2023-04-10 14:26:00 36.5 Jenn [facility] Body height 2023-04-10 14:26:00 167.6 cm [facility] Body weight 2023-04-10 14:26:00 117.935 kg [facility] BMI 2023-04-10 14:26:00 41.97 kg/m2 [facility] Procedures Procedure Date / Time Performed Performing Clinicia n Source URINALYSIS 2023-04-10 15:08:00 [facility] LIPASE 2023-04-10 15:00:00 [facility] COMP. METABOLIC PANEL ([id number]) 2023-04-10 15:00:00 Dee Corado [facility] CBC WITH DIFF 2023-04-10 15:00:00 Dee Corado [facility] Encounters Start Date/Time End Date/Time Encounter Type Admission Type Attending Clinicians Care Facility Care Department Encounter ID Source 2024-06-07 14:44:01 Outpatient ZeKayla [facility] [id number] [facility] 2024-04-21 13:09:00 Outpatient ZeJerela [facility] [id number] [facility] 2024-04-19 08:31:01 Outpatient Ze Kayla [facility] [id number] [facility] 2024-01-13 11:06:00 Outpatient Kayla Kunz [facility] [id number] [facility] 2024-01-10 10:53:00 Outpatient Kayla Kunz [facility] [id number] [facility] 2023-04-26 15:25:02 Outpatient Kayla Kunz [facility] [id number] [facility] 2024-10-23 00:00:00 2024-10-23 00:00:00 (TEL) [facility] [id number] [facility] 2024-10-23 00:00:00 2024-10-23 00:00:00 OFFICE VISIT ESTAB PT LEVEL 4 [facility] ST[facility] [id number] [facility] 2024-06-07 00:00:00 2024-06-07 00:00:00 OFFICE VISIT ESTAB PT LEVEL 3 [facility] ST[facility] [id number] [facility] 2024-02-23 00:00:00 2024-02-23 00:00:00 (PO) Post Op [facility]LMLC [facility] [id number] [facility] 2024-02-07 00:00:00 2024-02-07 00:00:00 (TEL) STLMLC STLMLC [id number] [facility] 2024-02-03 00:00:00 2024-02-03 00:00:00 (TEL) STLMLC STLMLC [id number] [facility] 2024-02-03 00:00:00 2024-02-03 00:00:00 (F/U) Follow Up Visit STLMLC ST[facility] [id number] [facility] 2024-01-13 00:00:00 2024-01-13 00:00:00 (SOLAR SALES AMBASSADOR) New Patient STLMLC STL[facility] [id number] [facility] 2024-01-13 00:00:00 2024-01-13 00:00:00 (TEL) STLMLC STL[facility]C [id number] [facility] 2023-10-25 00:00:00 2023-10-25 00:00:00 OFFICE VISIT ESTAB PT LEVEL 3 STLMLC STLMLC [id number] [facility] 2023-04-26 00:00:00 2023-04-26 00:00:00 OFFICE VISIT ESTAB PT LEVEL 3 STLC STLC [id number] [facility] 2023-04-10 09:30:00 2023-04-10 11:55:00 Emergency Dee Corado [facility] [id number] [facility] 2023-04-10 09:30:00 2023-04-10 11:55:00 Emergency X FIDELIA [facility] ERT [id number] [facility] Results Test Description Test Time Test Comments Results Result Co mments Source COMP. METABOLIC PANEL (70552)2023-04-10 15:49:12* Test Item Value Reference Range Interpretation Comme nts NA (test code = 3638132960) 140 mmol/L 135-145 K (test code = 4719889895) 4.7 mmol/L 3.5-5.0 CL (test code = 5715183842) 103 mmol/L 98-108 CO2 TOTAL (test code = 6122355000) 28 mmol/L 23-31 AGAP (test code = 5900830433) 9 2-16 BUN (test code = 7747112327) 12 mg/dL 7-23 GLUCOSE (test code = 8722645097) 105 mg/dL 70-110 CREATININE (test code = 9676799406) 0.71 mg/dL 0.50-1.04 TOTAL BILI (test code = 4147276913) 0.6 mg/dL 0.1-1.1 CALCIUM (test code = 5100164887) 9.5 mg/dL 8.6-10.6 T PROTEIN (test code = 3172646018) 7.5 g/dL 6.3-8.2 ALBUMIN (test code = 8072581020) 4.0 g/dL 3.5-5.0 ALK PHOS (test code = 9796462309) 58 U/L 34-122 ALTv (test code = 1742-6) 24 U/L 5-35 AST(SGOT) (test code = 2356211370) 26 U/L 13-40 eGFR (test code = 1219812966) 86.4 mL/min/1.73m2 TONIO (test code = TONIO) Association of Glomerular Filtration Rate (GFR) and Staging of Kidney Disease* + + +- +| GFR (mL/min/1.73 m2) ?| With Kidney Damage ?| ?Without Kidney Damage+ ------+ ----+ ------+| ?>90 ?| ?Stage one ?| ? Normal ?+ -+ + -+| ?60-89 ?| ?Stage two ?| ? Decreased GFR ? + + +- +| ?30-59 ?| ?Stage three ?| ? Stage three ? + + +- +| ?15-29 ?| ?Stage four ? | ? Stage four ?+ -+ + -+| ?<15 (or dialysis) ? ?| ?Stage five ? | ? Stage five ?+ -+ + -+ *Each stage assumes the associated GFR level has been in effect for at least three months. ?Stages 1 to 5, with or without kidney disease, indicate chronic kidney disease. Notes: Determination of stages one and two (with eGFR >59mL/min/1.73 m2) requires estimation of kidney damage for at least three months as defined by structural or functional abnormalities of the kidney, manifested by either:Pathological abnormalities or Markers of kidney damage (including abnormalities in the composition of the blood or urine or abnormalities in imaging tests). [facility] 15[facility]49:12* Test Item Value Reference Range Interpretation Comme nts LIPASE (test code = 5504456336) 29 U/L 0-220 Lab Interpretation (test cod e = 67208-6) Normal [facility] [id number] 15:22:55* Test Item Value Reference Range Interpretation Comme nts WBC (test code = 6690-2) 6.28 See_Comment [Automated ShelfFlipa ge] The system which generated this result transmitted reference range: 4.30 - 11.10 10*3/?L. The reference range was not used to interpret this result as normal/abnormal. RBC (test code = 789-8) 4.43 See_Comment [Automated ShelfFlipa ge] The system which generated this result transmitted reference range: 3.93 - 5.25 10*6/?L. The reference range was not used to interpret this result as normal/abnormal. HGB (test code = 718-7) 13.6 g/dL 11.6-15.0 HCT (test code = 4544-3) 41.2 % 35.7-45.2 MCV (test code = 787-2) 93.0 fL 80.6-95.5 MCH (test code = 785-6) 30.7 pg 25.9-32.8 MCHC (test code = 786-4) 33.0 g/dL 31.6-35.1 RDW-SD (test code = 37945-5) 43.4 fL 39.0-49.9 RDW-CV (test code = 788-0) 12.8 % 12.0-15.5 PLT (test code = 777-3) 301 See_Comment [Automated ShelfFlip[employer] ge] The system which generated this result transmitted reference range: 166 - 358 10*3/?L. The reference range was not used to interpret this result as normal/abnormal. MPV (test code = 65512-6) 9.3 fL 9.5-12.9 L NRBC/100 WBC (test code = 5183313529) 0.0 See_Comment [Automated Loop88 ssage] The system which generated this result transmitted reference range: 0.0 - 10.0 /100 WBCs. The reference range was not used to interpret this result as normal/abnormal. NRBC x10^3 (test code = 4919464724) See_Comment [Automated ShelfFlipa ge] The system which generated this result transmitted reference range: 10*3/?L. The reference range was not used to interpret this result as normal/abnormal. GRAN MAT (NEUT) % (test code = 770-8) 65.3 % IMM GRAN % (test code = 9778170950) 0.20 % LYMPH % (test code = 736-9) 24.5 % MONO % (test code = 5905-5) 6.4 % EOS % (test code = 713-8) 2.5 % BASO % (test code = 706-2) 1.1 % GRAN MAT x10^3(ANC) (test code = 4718748896) 4.10 10*3/uL 1.88-7.09 IMM GRAN x10^3 (test code = 4018385472) 0.00-0.06 LYMPH x10^3 (test code = 731-0) 1.54 10*3/uL 1.32-3.29 MONO x10^3 (test code = 742-7) 0.40 10*3/uL 0.33-0.92 EOS x10^3 (test code = 711-2) 0.16 10*3/uL 0.03-0.39 BASO x10^3 (test code = 704-7) 0.07 10*3/uL 0.01-0.07 Lab Interpretation (test code = 13710-7) Abnormal [facility]"
[2024-10-24] MEDS ORDERED: LIDOCAINE VISCOUS 2% 10ML ORAL SOLN ONE (13:08)
[2024-10-24] MEDS ORDERED: FAMOTIDINE 20 MG/2 ML VIAL IV ONE (13:08)
[2024-10-24] MEDS ORDERED: MAGNES/ALUMIN/SIMET 30ML UCUP ONE (13:08)
[2024-10-24 13:16] LABS: Absolute Basophils 0.1 K/uL (0-0.5); Absolute Eosinophils 0.2 K/uL (0-0.5); Absolute Lymphocytes (CBC) 2.1 K/uL (0.7-4.9); Absolute Monocytes 0.6 K/uL (0.1-1.3); Absolute Neutrophil 6.9 K/uL (1.8-8.0); Basophils % 0.6 % (0-1.3); Eosinophils % 2.1 % (0-4.4); Hematocrit 40.1 % (36.0-45.0); Hemoglobin 13.3 g/dL (12.0-15.0); Lymphocytes % 20.9 % (15.3-44.8); MCH 30.4 pg (27.0-35.0); MCHC 33.2 g/dL (32.0-36.0); MCV 91.5 fL (80-100); MPV 7.2 fL (7.6-11.3); Monocytes % 5.7 % (3.3-12.3); Neutrophils % 70.7 % (41.7-73.7); Nucleated Red Blood Cells % 0.1 % (0-0); Platelets 363 thou/uL (152-406); RBC Red Blood Cell Count 4.38 M/uL (3.86-4.86); Red Cell Distribution Width 13.5 % (12.1-15.2)
[2024-10-24 13:23] LABS: Albumin 3.4 g/dL (3.4-5.0); Albumin/Globulin Ratio 0.7 (1.1-1.8); Anion Gap 6.6 mEq/L (5.0-15.0); Bilirubin Total 0.4 mg/dL (0.2-1.0); Globulin 4.8 g/dL (2.3-3.5); Potassium 3.6 mEq/L (3.5-5.1); Protein, Total 8.2 g/dL (6.4-8.2)
--- NOTE | 2024-10-24 13:31 | RAD REPORT ---
EXAMINATION: COMPLETE ABDOMINAL ULTRASOUND CLINICAL INDICATION: upper abd pain, cholecystectomy TECHNIQUE: Grayscale ultrasonography of the abdomen was performed. COMPARISON: 04/07/2023 CT study FINDINGS: LIVER: Normal size and echogenicity. No masses seen. GALLBLADDER: Absent BILE DUCTS: Intrahepatic and extrahepatic bile ducts appear normal. Measured near the steven hepatis , the common bile duct is 2 mm. RIGHT KIDNEY: Normal in echogenicity and size. No calculus, solid mass or hydronephrosis. LEFT KIDNEY:. Normal in echogenicity and size. No calculus, solid mass or hydronephrosis. SPLEEN: Normal in echogenicity, with length of 11 cm. PANCREAS/AORTA: Pancreas not well seen. Aorta also limited in assessment. IMPRESSION: No acute or significant abnormalities. Cholecystectomy.
--- NOTE | 2024-10-24 13:44 | ER ---
Nurse's Notes [facility] Name: Brenda Nicole Age: 54 yrs Sex: Female : 1970 Arrival Date: 10/24/2024 Time: 12:15 Bed 14 Private MD: Diagnosis: Upper abdominal pain, unspecified Presentation: 10/24 12:32 Chief complaint: Patient states: RUQ pain feels swollen and radiates to back , pain iw started a few days ago. Coronavirus screen: At this time, the client does not indicate any symptoms associated with coronavirus-19. Ebola Screen: No symptoms or risks identified at this time. Initial Sepsis Screen: Does the patient meet any 2 criteria? No. Patient's initial sepsis screen is negative. Does the patient have a suspected source of infection? No. Patient's initial sepsis screen is negative. Risk Assessment: Do you want to hurt yourself or someone else? Patient reports no desire to harm self or others. Onset of symptoms was October 22, 2024. 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 - Infectious Disease History:: Denies. - Social history:: Smoking status: Patient denies any tobacco usage or history of. - Family history:: not pertinent. - Hospitalizations: : No recent hospitalization is reported. Screenin:00 [facility] ED Fall Risk Assessment (Adult) History of falling in the last 3 months, me1 including since admission No falls in past 3 months (0 pts) Confusion or Disorientation No (0 pts) Intoxicated or Sedated No (0 pts) Impaired Gait No (0 pts) Mobility Assist Device Used No (0 pt) Altered Elimination No (0 pt) Score/Fall Risk Level 0 - 2 = Low Risk Maintained a safe environment, Provided non-skid footwear, Hourly rounding (assess needs \T\ fall precautionary measures) done. Abuse screen: Denies threats or abuse. Nutritional screening: No deficits noted. Tuberculosis screening: No symptoms or risk factors identified. Assessment: 14:00 General: Appears comfortable, well groomed, well developed, well nourished, Behavior is me1 calm, cooperative, appropriate for age, Reports RUQ pain feels swollen and radiates to back , pain started a few days ago. Pain: Complains of pain in right lower quadrant Pain does not radiate. Pain currently is 2 out of 10 on a pain scale. at worst was 7 out of 10 on a pain scale. Quality of pain is described as crampy, Pain began suddenly, Is continuous. Neuro: Level of Consciousness is awake, alert, obeys commands, Oriented to person, place, time, situation, Appropriate for age. Cardiovascular: Patient's skin is warm and dry. Respiratory: Airway is patent Respiratory effort is even, unlabored, Respiratory pattern is regular, symmetrical. GI: Abdomen is round non-distended, Bowel sounds present X 4 quads. Abd is soft and non tender X 4 quads. GI: Reports lower abdominal pain. : No signs and/or symptoms were reported regarding the genitourinary system. EENT: No signs and/or symptoms were reported regarding the EENT system. Derm: Skin is intact, is healthy with good turgor, Skin is pink, warm \T\ dry. Musculoskeletal: No signs and/or symptoms reported regarding the musculoskeletal system. Vital Signs: 12:32 BP 136 / 78; Pulse 92; Resp 16; Temp 97.1; Pulse Ox 96% on R/A; Weight 117.93 kg; iw Height 5 ft. 6 in. ; Pain 7/10; 14:07 Pain 2/10; me1 14:07 Pain 2/10; me1 14:09 BP 121 / 63; Pulse 71; Resp 18; Temp 98.7; Pulse Ox 95% on R/A; me1 12:32 Body Mass Index 41.96 (117.93 kg, 167.64 cm) iw 12:32 Pain Scale: Adult iw 14:07 Pain Scale: Adult me1 14:07 Pain Scale: Adult me1 ED Course: 12:18 Patient arrived in ED. sj2 12:24 Nathan Lisa MD is Attending Physician. rn 12:34 Triage completed. iw 12:34 Arm band placed on. iw 12:47 CBC with Diff Sent. bc6 12:47 CMP Sent. bc6 12:47 Lipase Sent. 6 12:47 Initial lab(s) drawn, by me, sent to lab. Inserted saline lock: 20 gauge in left bc6 antecubital area, using aseptic technique. Blood collected. Flushed with 10 mL NS. 13:14 US Abdomen Complete In Process Unspecified. EDMS 13:33 Christianne Ramirez, RN is Primary Nurse. me1 14:00 Patient has correct armband on for positive identification. Bed in low position. Call me1 light in reach. Side rails up X2. Provided Education on: POC. Verbalized understanding.. Client placed on continuous cardiac and pulse oximetry monitoring. NIBP monitoring applied. Pulse ox on. NIBP on. 14:00 No provider procedures requiring assistance completed. me1 14:15 IV discontinued, intact, bleeding controlled, No redness/swelling at site. Pressure me1 dressing applied. Administered Medications: 13:13 Drug: Famotidine IVP 20 mg IVP once; dilute with 10 mL 0.9% NaCl; give over 2 minutes rs5 Route: IVP; Site: left antecubital; 14:07 Follow up: Pain 2/10 Adult; Response: No adverse reaction; Pain is decreased me1 13:14 Drug: GI Cocktail without - (Maalox PO 30 ml, Lidocaine Mucous Membrane 2 % 15 rs5 ml) PO once Route: PO; 14:07 Follow up: Pain 2/10 Adult; Response: No adverse reaction; Pain is decreased me1 Medication: 14:00 VIS not applicable for this client. me1 Outcome: 13:44 Discharge ordered by . vern 14:15 Discharged to home ambulatory, me1 14:15 Condition: stable 14:15 Discharge instructions given to patient, Instructed on discharge instructions, follow up and referral plans. medication usage, Demonstrated understanding of instructions, follow-up care, medications, Prescriptions given X 1, 14:16 Patient left the ED. me1 Signatures: Dispatcher [employer] Lora Light, Nathan Sun RN, MD MD rn Sotelo, Ricky, RN RN rs5 [facility] Christianne Ramirez RN RN me1 Michelle Atwood 2 Corrections: (The following items were deleted from the chart) 12:34 12:34 Home Meds: aspirin 81 mg Oral chew 1 tab once daily; [facility] 14: 12:32 Chief complaint: Patient states: RUQ pain feels swollen and radiates to back , me1 pain started a few days ago iw
--- NOTE | 2024-10-24 13:44 | EDPHYS ---
Physician Documentation [facility] Name: Brenda Nicole Age: 54 yrs Sex: Female : 1970 Arrival Date: 10/24/2024 Time: 12:15 Bed 14 Private MD: ED Physician Nathan Lisa HPI: 10/24 13:30 This 54 yrs old Female presents to ER via Ambulatory with complaints of Abdominal Pain. rn 13:30 The patient presents with abdominal pain in the right upper quadrant. Onset: The rn symptoms/episode began/occurred 2 week(s) ago. The symptoms radiate to the right flank. Associated signs and symptoms: Pertinent positives: nausea, Pertinent negatives: anorexia, blood in stools, chest pain, fever, shortness of breath. 13:31 The symptoms are described as achy, constant. Modifying factors: The symptoms are rn alleviated by nothing, the symptoms are aggravated by nothing. Severity of pain: At its worst the pain was mild in the emergency department the pain has improved. The patient has not experienced similar symptoms in the past. Patient reports right upper quadrant abdominal pain, constant for 2 weeks, not improving. Patient reports cholecystectomy years ago. No fever or chills. No vomiting or diarrhea. No blood in stool. No trauma. Denies any chest pain or pleuritic pain or cough.. 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 - Infectious Disease History:: Denies. - Social history:: Smoking status: Patient denies any tobacco usage or history of. - Family history:: not pertinent. - Hospitalizations: : No recent hospitalization is reported. ROS: 13:31 Constitutional: Negative for fever, chills, and weight loss, Cardiovascular: Negative rn for chest pain, palpitations, and edema, Respiratory: Negative for shortness of breath, cough, wheezing, and pleuritic chest pain, Abdomen/GI: Positive for abdominal pain with nausea MS/Extremity: Negative for injury and deformity, Skin: Negative for injury, rash, and discoloration, Neuro: Negative for headache, weakness, numbness, tingling, and seizure, Exam: 13:31 Constitutional: This is a well developed, well nourished patient who is awake, alert, rn and in no acute distress. Cardiovascular: Regular rate and rhythm. No pulse deficits. Respiratory: Speaking full sentences, unlabored. No increased work of breathing, no retractions or nasal flaring. Abdomen/GI: Soft, mild right upper quadrant tenderness without rebound or guarding. No distention. Negative John. MS/ Extremity: Pulses equal, no cyanosis. Neurovascular intact. Full, normal range of motion. Equal circumference. Neuro: Awake and alert, GCS 15 Vital Signs: 12:32 BP 136 / 78; Pulse 92; Resp 16; Temp 97.1; Pulse Ox 96% on R/A; Weight 117.93 kg; iw Height 5 ft. 6 in. ; Pain 7/10; 14:07 Pain 2/10; me1 14:07 Pain 2/10; me1 14:09 BP 121 / 63; Pulse 71; Resp 18; Temp 98.7; Pulse Ox 95% on R/A; me1 12:32 Body Mass Index 41.96 (117.93 kg, 167.64 cm) iw 12:32 Pain Scale: Adult iw 14:07 Pain Scale: Adult me1 14:07 Pain Scale: Adult me1 MDM: 12:24 Medical Screening Exam initiated rn 13:42 Differential diagnosis: gastritis, gastroesophageal reflux disease, non-specific abd rn pain, pancreatitis, Peptic Ulcer Disease. Data reviewed: vital signs, nurses notes, lab test result(s), radiologic studies, ultrasound, and as a result, I will discharge patient. Counseling: I had a detailed discussion with the patient and/or guardian regarding the historical points, exam findings, and any diagnostic results supporting the discharge/admit diagnosis, lab results, radiology results, the need for outpatient follow up, to return to the emergency department if symptoms worsen or persist or if there are any questions or concerns that arise at home. Special discussion: Based on the patient's Hx, exam, and Dx evaluation, there is no indication for emergent surgery or inpatient Tx. It is understood by the patient/guardian that if the Sx's persist or worsen they need to return immediately for re-evaluation. I discussed with the patient/guardian in detail that at this point there is no indication for admission to the hospital. It is understood, however, that if the symptoms persist or worsen the patient needs to return immediately for re-evaluation. ED course: No acute findings and workup today. Ultrasound abdomen without acute findings. Lab work unremarkable, specifically LFTs and lipase normal. Bile ducts normal caliber. Will discharge home with antacid medication and GI follow-up.. 10/24 12:37 Order name: CBC with Diff; Complete Time: 13:24 rn 10/24 12:37 Order name: CMP; Complete Time: 13:24 rn 10/24 12:37 Order name: Lipase; Complete Time: 13:24 rn 10/24 12:42 Order name: US Abdomen Complete; Complete Time: 13:37 rn 10/24 12:37 Order name: IV Saline Lock; Complete Time: 12:47 rn 10/24 12:37 Order name: Labs collected and sent; Complete Time: 12:47 rn Administered Medications: 13:13 Drug: Famotidine IVP 20 mg IVP once; dilute with 10 mL 0.9% NaCl; give over 2 minutes rs5 Route: IVP; Site: left antecubital; 14:07 Follow up: Pain 2/10 Adult; Response: No adverse reaction; Pain is decreased me1 13:14 Drug: GI Cocktail without - (Maalox PO 30 ml, Lidocaine Mucous Membrane 2 % 15 rs5 ml) PO once Route: PO; 14:07 Follow up: Pain 2/10 Adult; Response: No adverse reaction; Pain is decreased me1 Disposition Summary: 10/24/24 13:44 Discharge Ordered Notes: Location: Home rn Problem: new rn Symptoms: have improved rn Condition: Stable rn Diagnosis - Upper abdominal pain, unspecified rn Followup: rn - With: Private Physician - When: As needed - Reason: Recheck today's complaints, Re-evaluation by your physician Discharge Instructions: - Discharge Summary Sheet rn - Abdominal Pain, Adult rn - Gastroesophageal Reflux Disease, Adult rn Forms: - Medication Reconciliation Form rn - 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 EDMS EDMS
[2024-10-24 14:40] VITALS: BP 121/63; TEMP 98.7; O2SAT 95
== END 2024-10-24 14:16 | disposition home or self-care (01) ==
LOC: ER 12:15
DX: R10.11 Right upper quadrant pain (principal)
CPT/HCPCS: 36415; 76700; 80053; 83690; 85025; 96374; 99284

== ENCOUNTER 2025-01-06 11:05 | Emergency (ER) | payer BC ==
--- OUTSIDE RECORDS SUMMARY | 2025-01-06 11:09 | XMS REPORT | Continuity of Care Document ---
Author Name Unknown Address 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 Phone Kayla Kunz Primary Care Physician [phone] Kayla Kunz Attending Clinician Unavailable Dee Weir Attending Clinician [phone] DEE CORADO Attending Clinician Unavailable MELISA WEBB Attending Clinician Unavailable Melisa Webb DO Attending Clinician [phone] Doctor Unassigned, [place] Attending Clinician U LARISSA Lozada Attending Clinician Unavailable Larissa Gudino Attending Clinician [phone] Payers Payer Name Policy Type Policy Number Effective Date Expirati on Date Source Problems Condition Name Condition Details Condition Category Status Onset Date Resolution Date Last Treatment Date Treating Clinician Comments Source No known active problems No known active problems Disease [facility] [id number] Screening mammogram, encounter for Problem [facility] [id number] S/P left knee arthroscop y Problem [facility] [id number] COVID-19 long hauler Problem [facility] [id number] Deviated septum Problem [facility] [id number] Acute pain of left knee Problem [facility] [id number] Obesity, Class III, BMI 40-49.9 (morbid obesity) Problem [facility] [id number] 20105 Pain, joint, knee, left Problem [facility] [id number] Sciatic pain, left Problem [facility] [id number] Complex tear of medial meniscus of left knee as current injury, subsequent encounter Problem [facility] [id number] Left flank pain Problem [facility] Allergies, Adverse Reactions, Alerts Allergy Name Allergy Type Status Severity Reaction(s) Onset Date Inactive Date Treating Clinician Comments Source Sulfa (Sulfona mide Antibiot ics) Propensi ty to adverse reaction s Active Unknown - See comments 11-11 00:00: 00 [facility] SULFA (SULFONA MIDE ANTIBIOT ICS) Drug Class Active Unknown-Cmnt 11-11 00:00: 00 [facility] Sulfa (Sulfona mide Antibiot ics) Propensi ty to adverse reaction s Active Unknown - See comments 11-11 00:00: 00 [facility] Substanc e with sulfonam nazario structur e and antibact erial mechanis m of action (substan ce) Substanc e with sulfonam nazario structur e and antibact erial mechanis m of action (substan ce) Active tongue swelling [facility] NO KNOWN ALLERGIE S Drug Class Active [facility] Social History Social Habit Start Date Stop Date Quantity Comments Source Exposure to SARS-CoV-2 (event) Not sure [facility] History of Tobacco Use [facility] Sex Assigned At [facility] Tobacco use and exposure 2021-11-11 00:00:00 2021-11-11 00:00:00 Smokeless tobacco non-user [facility] Smoking Status Start Date Stop Date Source Never Smoker [facility] Medications Ordered Medication Name Filled Medication Name [...] 1 dose, On 04/10/23 at 1000, CLAUDIA [facility] methocarbam oL (ROBAXIN) tablet 500 mg 04-10 14:47: 00 04-10 15:15 :00 No 500mg 500 mg, Oral, ONCE, 1 dose, On 04/10/23 at 1000, [facility] methocarbam oL 500 mg tablet 04-10 00:00: 00 Yes [id number] 500mg Take 1 tablet by mouth 3 (three) times daily as needed for Pain (scale 7-10). [facility] ibuprofen 600 mg tablet 04-10 00:00: 00 Yes [id number] 600mg Take 1 tablet by mouth every 8 (eight) hours as needed for Pain (scale 4-6). [facility] lidocaine 5 % (700 mg/patch) patch 04-10 00:00: 00 Yes [id number] 1{patch } Apply 1 Patch to area(s) in the morning. [facility] chlorhexidi ne 0.12 % mouthwash 12-13 00:00: 00 Yes [id number] 15mL Swish and spit out 15 mL 2 (two) times daily. [facility] methylPREDN ISolone (MEDROL, BRAD,) 4 mg tablets 12-13 00:00: 00 Yes [id number] Take by mouth SEE-INSTRU CTIONS. follow package directions [facility] clindamycin 150 mg capsule 12-13 00:00: 00 12-21 05:59 :00 No [id number] 300mg Take 2 capsules by mouth 4 (four) times daily for 7 days. [facility] bromphenira mine-pseudo ephedrine-D M (BROMFED DM) 2-30-10 mg/5 mL syrup 11-11 00:00: 00 Yes [id number] 10mL Take 10 mL by mouth 4 (four) times daily as needed for Congestion /Allergies . [facility] amoxicillin -clavulanat e 875-125 mg per tablet 11-11 00:00: 00 11-19 05:59 :00 No [id number] 1{tbl} Take 1 tablet by mouth 2 (two) times daily for 7 days. [facility] Immunizations Ordered Immunization Name Filled Immunization Name Date Status Comments Source Flucelvax (ccIIV4) - MDV - 0.5mL Flucelvax (ccIIV4) - MDV - 0.5mL Unknown Completed [facility] Pfizer COVID-19 Vaccine Pfizer COVID-19 Vaccine Unknown Completed [facility] Flucelvax (ccIIV4) - MDV - 0.5mL Flucelvax (ccIIV4) - MDV - 0.5mL Unknown Completed [facility] Pfizer COVID-19 Vaccine Pfizer COVID-19 Vaccine Unknown Completed [facility] Flucelvax (ccIIV4) - MDV - 0.5mL Flucelvax (ccIIV4) - MDV - 0.5mL Unknown Completed [facility] Pfizer COVID-19 Vaccine Pfizer COVID-19 Vaccine Unknown Completed [facility] Flublok (RIV4) - SDS - 0.5mL Flublok (RIV4) - SDS - 0.5mL Unknown Completed [facility] Shingrix Shingrix Unknown Completed [facility] Flucelvax - multidose vial Flucelvax - multidose vial Unknown Completed [facility] Pfizer COVID-19 Vaccine Pfizer COVID-19 Vaccine Unknown Completed [facility] Flucelvax (ccIIV4) - MDV - 0.5mL Flucelvax (ccIIV4) - MDV - 0.5mL Unknown Completed [facility] Pfizer COVID-19 Vaccine Pfizer COVID-19 Vaccine Unknown Completed [facility] Flucelvax (ccIIV4) - MDV - 0.5mL Flucelvax (ccIIV4) - MDV - 0.5mL Unknown Completed [facility] Pfizer COVID-19 Vaccine Pfizer COVID-19 Vaccine Unknown Completed [facility] Flucelvax (ccIIV4) - MDV - 0.5mL Flucelvax (ccIIV4) - MDV - 0.5mL Unknown Completed [facility] Pfizer COVID-19 Vaccine Pfizer COVID-19 Vaccine Unknown Completed [facility] Flucelvax (ccIIV4) - MDV - 0.5mL Flucelvax (ccIIV4) - MDV - 0.5mL Unknown Completed [facility] Pfizer COVID-19 Vaccine Pfizer COVID-19 Vaccine Unknown Completed [facility] Flucelvax (ccIIV4) - MDV - 0.5mL Flucelvax (ccIIV4) - MDV - 0.5mL Unknown Completed [facility] Pfizer COVID-19 Vaccine Pfizer COVID-19 Vaccine Unknown Completed [facility] Vital Signs Vital Name Observation Time Observation Value Comments S ource height 2024-10-23 11:20:00 65 [in_i] Commo n [facility] weight 2024-10-23 11:20:00 260 [lb_av] Comm on [facility] bmi 2024-10-23 11:20:00 43.26 kg/m2 Comm on [facility] height 2024-06-07 15:00:00 65 [in_i] Commo n [facility] weight 2024-06-07 15:00:00 264.4 [lb_av] Co mmon [facility] temperature 2024-06-07 15:00:00 97.7 [degF] Com mon [facility] bmi 2024-06-07 15:00:00 43.99 kg/m2 Comm on [facility] oximetry 2024-06-07 15:00:00 97 % Commo n [facility] respiratory rate 2024-06-07 15:00:00 18 /min Common [facility] blood pressure systolic 2024-06-07 15:00:00 138 mm[Hg] Common [facility] blood pressure diastolic 2024-06-07 15:00:00 76 mm[Hg] [facility] height 2024-02-23 13:30:00 65 [in_i] Commo n [facility] weight 2024-02-23 13:30:00 259.6 [lb_av] Co mmon [facility] temperature 2024-02-23 13:30:00 97.8 [degF] Com mon [facility] bmi 2024-02-23 13:30:00 43.19 kg/m2 Comm on [facility] blood pressure systolic 2024-02-23 13:30:00 120 mm[Hg] Common Spiri t [facility] blood pressure diastolic 2024-02-23 13:30:00 80 mm[Hg] Common Spiri t [facility] height 2024-02-03 09:15:00 65 [in_i] Commo n [facility] weight 2024-02-03 09:15:00 260 [lb_av] Comm on [facility] bmi 2024-02-03 09:15:00 43.26 kg/m2 Comm on [facility] blood pressure systolic 2024-02-03 09:15:00 123 mm[Hg] Common Spiri t [facility] blood pressure diastolic 2024-02-03 09:15:00 76 mm[Hg] [facility] height 2024-01-13 09:00:00 65 [in_i] Commo n [facility] weight 2024-01-13 09:00:00 260 [lb_av] Comm on [facility] bmi 2024-01-13 09:00:00 43.26 kg/m2 Comm on [facility] blood pressure systolic 2024-01-13 09:00:00 123 mm[Hg] Common [facility] blood pressure diastolic 2024-01-13 09:00:00 74 mm[Hg] [facility] height 2023-10-25 13:20:00 65 [in_i] Commo n [facility] weight 2023-10-25 13:20:00 260.6 [lb_av] Co [facility] temperature 2023-10-25 13:20:00 98.1 [degF] Com [facility] bmi 2023-10-25 13:20:00 43.36 kg/m2 Comm on [facility] oximetry 2023-10-25 13:20:00 95 % Commo n [facility] respiratory rate 2023-10-25 13:20:00 18 /min Common [facility] blood pressure systolic 2023-10-25 13:20:00 122 mm[Hg] Common [facility] blood pressure diastolic 2023-10-25 13:20:00 84 mm[Hg] [facility] height 2023-10-25 13:20:00 65 [in_i] Commo n [facility] weight 2023-10-25 13:20:00 260.6 [lb_av] Co on [facility] temperature 2023-10-25 13:20:00 98.1 [degF] Com [facility] bmi 2023-10-25 13:20:00 43.36 kg/m2 Comm on [facility] oximetry 2023-10-25 13:20:00 95 % Commo n [facility] respiratory rate 2023-10-25 13:20:00 18 /min [facility] blood pressure systolic 2023-10-25 13:20:00 122 mm[Hg] [facility] blood pressure diastolic 2023-10-25 13:20:00 84 mm[Hg] [facility] height 2023-04-26 15:40:00 63 [in_i] Commo n [facility] weight 2023-04-26 15:40:00 250.6 [lb_av] Co mmon [facility] temperature 2023-04-26 15:40:00 97.3 [degF] Com mon [facility] bmi 2023-04-26 15:40:00 44.39 kg/m2 Comm on [facility] oximetry 2023-04-26 15:40:00 95 % Commo n [facility] respiratory rate 2023-04-26 15:40:00 16 /min [facility] blood pressure systolic 2023-04-26 15:40:00 137 mm[Hg] [facility] blood pressure diastolic 2023-04-26 15:40:00 75 mm[Hg] [facility] Systolic blood pressure 2023-04-10 16:00:00 122 mm[Hg] [facility] Diastolic blood pressure 2023-04-10 16:00:00 67 mm[Hg] [facility] Heart rate 2023-04-10 16:00:00 60 /min [facility] Respiratory rate 2023-04-10 16:00:00 16 /min [facility] Oxygen saturation in Arterial blood by Pulse oximetry 2023-04-10 16:00:00 95 /min [facility] Body temperature 2023-04-10 14:26:00 36.5 Jenn [facility] Body height 2023-04-10 14:26:00 167.6 cm [facility] Body weight 2023-04-10 14:26:00 117.935 kg [facility] BMI 2023-04-10 14:26:00 41.97 kg/m2 [facility] Systolic blood pressure 2021-12-14 02:05:00 161 mm[Hg] [facility] Diastolic blood pressure 2021-12-14 02:05:00 99 mm[Hg] [facility] Heart rate 2021-12-14 02:05:00 84 /min [facility] Body temperature 2021-12-14 02:05:00 37.06 Jenn [facility] Respiratory rate 2021-12-14 02:05:00 20 /min [facility] Body height 2021-12-14 02:05:00 167.6 cm [facility] Body weight 2021-12-14 02:05:00 116.121 kg [facility] BMI 2021-12-14 02:05:00 41.32 kg/m2 [facility] Oxygen saturation in Arterial blood by Pulse oximetry 2021-12-14 02:05:00 99 /min [facility] Systolic blood pressure 2021-11-12 00:19:00 133 mm[Hg] [facility] Diastolic blood pressure 2021-11-12 00:19:00 86 mm[Hg] [facility] Heart rate 2021-11-12 00:19:00 101 /min [facility] Body temperature 2021-11-12 00:19:00 36.89 Jenn [facility] Respiratory rate 2021-11-12 00:19:00 18 /min [facility] Body height 2021-11-12 00:19:00 168.9 cm [facility] Body weight 2021-11-12 00:19:00 108.863 kg [facility] BMI 2021-11-12 00:19:00 38.16 kg/m2 [facility] Oxygen saturation in Arterial blood by Pulse oximetry 2021-11-12 00:19:00 98 /min [facility] Procedures Procedure Date / Time Performed Performing Clinicia n Source URINALYSIS 2023-04-10 15:08:00 Dee Corado [facility] LIPASE 2023-04-10 [facility]:00[facility] METABOLIC PANEL (12112) 2023-04-10 15:00:00 Dee Corado [facility] CBC WITH DIFF 2023-04-10 15:00:00 Dee Corado [facility] CONSENT/REFUSAL FOR DIAGNOSIS AND TREATMENT 2021-12-14 01:56:50 Doctor Unassigned, [place] [facility] Encounters Start Date/Time End Date/Time Encounter Type Admission Type Attending [facility] Facility Care Department Encounter ID Source 2024-06-07 14:44:01 Outpatient Kayla Kunz ST[facility] STLC [id number] [facility] 2024-04-21 13:09:00 Outpatient Kayla Kunz ST[facility] STLMLC [id number] [facility] 2024-04-19 08:31:01 Outpatient KusilvakKayla paris STLC STLMLC [id number] [facility] 2024-01-13 11:06:00 Outpatient Kayla Kunz ST[facility] STLMLC [id number] [facility] 2024-01-10 10:53:00 Outpatient Kayla Kunz STLMCHINMAY STLMLC [id number] [facility] 2023-04-26 15:25:02 Outpatient Kayla Kunz STLC STLMLC [id number] [facility] 2024-10-23 00:00:00 2024-10-23 00:00:00 (TEL) STLMLC STLMLC [id number] [facility] 2024-10-23 00:00:00 2024-10-23 00:00:00 OFFICE VISIT ESTAB PT LEVEL 4 STLMLC STLMLC [id number] [facility] 2024-06-07 00:00:00 2024-06-07 00:00:00 OFFICE VISIT ESTAB PT LEVEL 3 STLMLC STLMLC [id number] [facility] 2024-02-23 00:00:00 2024-02-23 00:00:00 (PO) Post Op STLMLC STLMLC [id number] [facility] 2024-02-07 00:00:00 2024-02-07 00:00:00 (TEL) STLMLC STLMLC [id number] [facility] 2024-02-03 00:00:00 2024-02-03 00:00:00 (TEL) STLMLC STLMLC [id number] [facility] 2024-02-03 00:00:00 2024-02-03 00:00:00 (F/U) Follow Up Visit STLMLC STLMLC [id number] [facility] 2024-01-13 00:00:00 2024-01-13 00:00:00 (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 Patient STLMLC STLMLC [id number] [facility] 2024-01-13 00:00:00 2024-01-13 00:00:00 (TEL) STLMLC STLMLC [id number] [facility] 2023-10-25 00:00:00 2023-10-25 00:00:00 OFFICE VISIT ESTAB PT LEVEL 3 STLMLC STLMLC [id number] [facility] 2023-04-26 00:00:00 2023-04-26 00:00:00 OFFICE VISIT ESTAB PT LEVEL 3 STLMLC STLMLC [id number] [facility] 2023-04-10 09:30:00 2023-04-10 11:55:00 Emergency Dee Corado [facility] [id number] [facility] 2023-04-10 09:30:00 2023-04-10 11:55:00 Emergency X DEE CORADO [facility] ERT [id number] [facility] 2021-12-13 20:10:00 2021-12-13 20:53:00 Emergency X MELISA WEBBMB ERT [id number] [facility] 2021-12-13 20:10:00 2021-12-13 20:53:00 Emergency Melisa Webb [facility] [id number] [facility] 2021-12-13 00:00:00 2021-12-13 00:00:00 Orders Only Doctor Unassigned, [place] [facility] [id number] [facility] 2021-11-11 18:20:00 2021-11-11 18:50:43 Outpatient R [facility] [id number] [facility] 2021-11-11 18:20:00 2021-11-11 18:50:43 Urgent Care [facility] [id number] [facility] Results Test Description Test Time Test Comments Results Result Co mments Source COMP. METABOLIC PANEL (04954)2023-04-10 15:49:12* Test Item Value Reference Range Interpretation Comme nts NA (test code = 9166453735) 140 mmol/L 135-145 K (test code = 3397070484) 4.7 mmol/L 3.5-5.0 CL (test code = 6964821266) 103 mmol/L 98-108 CO2 TOTAL (test code = 0005714216) 28 mmol/L 23-31 AGAP (test code = 9077496225) 9 2-16 BUN (test code = 7364016355) 12 mg/dL 7-23 GLUCOSE (test code = 8352006204) 105 mg/dL 70-110 CREATININE (test code = 2310383598) 0.71 mg/dL 0.50-1.04 TOTAL BILI (test code = 6987281299) 0.6 mg/dL 0.1-1.1 CALCIUM (test code = 0977456985) 9.5 mg/dL 8.6-10.6 T PROTEIN (test code = 1756206658) 7.5 g/dL 6.3-8.2 ALBUMIN (test code = 0584790012) 4.0 g/dL 3.5-5.0 ALK PHOS (test code = 8064089679) 58 U/L 34-122 ALTv (test code = 1742-6) 24 U/L 5-35 AST(SGOT) (test code = 8076479062) 26 U/L 13-40 eGFR (test code = 6587221615) 86.4 mL/min/1.73m2 TONIO (test code = TONIO) [...] or urine or abnormalities in imaging tests). [facility]* Test Item Value Reference Range Interpretation Comme nts LIPASE (test code = 7112687341) 29 U/L 0-220 Lab Interpretation (test cod e = 37468-0) Normal [facility] WITH [id number] 15:22:55* Test Item Value Reference Range Interpretation Comme nts WBC (test code = 6690-2) 6.28 See_Comment [Automated messa ge] The system which generated this result transmitted reference range: 4.30 - 11.10 10*3/?L. The reference range was not used to interpret this result as normal/abnormal. RBC (test code = 789-8) 4.43 See_Comment [Automated messa ge] The system which generated this result [...] 33.0 g/dL 31.6-35.1 RDW-SD (test code = 96802-4) 43.4 fL 39.0-49.9 RDW-CV (test code = 788-0) 12.8 % 12.0-15.5 PLT (test code = 777-3) 301 See_Comment [Automated messa ge] The system which generated this result transmitted reference range: 166 - 358 10*3/?L. The reference range was not used to interpret this result as normal/abnormal. MPV (test code = 66893-2) 9.3 fL 9.5-12.9 L NRBC/100 WBC (test code = 5351889834) 0.0 See_Comment [Automated [employer] ssage] The system which generated this result transmitted reference range: 0.0 - 10.0 /100 WBCs. The reference range was not used to interpret this result as normal/abnormal. NRBC x10^3 (test code = 5761963260) See_Comment [Automated messa ge] The system which generated this result transmitted reference range: 10*3/?L. The reference range was not used to interpret this result as normal/abnormal. GRAN MAT (NEUT) % (test code = 770-8) 65.3 % IMM GRAN % (test code = 0582519863) 0.20 % LYMPH % (test code = 736-9) 24.5 % MONO % (test code = 5905-5) 6.4 % EOS % (test code = 713-8) 2.5 % BASO % (test code = 706-2) 1.1 % GRAN MAT x10^3(ANC) (test code = 2010397566) 4.10 10*3/uL 1.88-7.09 IMM GRAN x10^3 (test code = 7628070888) 0.00-0.06 LYMPH x10^3 (test code = 731-0) 1.54 10*3/uL 1.32-3.29 MONO x10^3 (test code = 742-7) 0.40 10*3/uL 0.33-0.92 EOS x10^3 (test code = 711-2) 0.16 10*3/uL 0.03-0.39 BASO x10^3 (test code = 704-7) 0.07 10*3/uL 0.01-0.07 Lab Interpretation (test code = 91925-3) Abnormal [facility]"
[2025-01-06] MEDS ORDERED: FAMOTIDINE 20 MG TAB ONE (11:29)
[2025-01-06] MEDS ORDERED: dexAMETHasone 10 MG/ML VIAL ONE (11:29)
[2025-01-06] MEDS ORDERED: DIPHENHYDRAMINE 50 MG/ML VIAL ONE ×2 (11:30→11:41)
--- NOTE | 2025-01-06 11:31 | ER ---
Nurse's Notes [facility] Name: Brenda Nicole Age: 54 yrs Sex: Female : 1970 Arrival Date: 01/06/2025 Time: 11:05 Bed 10 Private MD: Diagnosis: Rash and other nonspecific skin eruption Presentation: 01/06 11:19 Chief complaint: Patient states: Rash to neck area started last Wednesday. Benadryl cream ll1 helped. Flared back up yesterday. No fever. Coronavirus screen: Client denies travel out of the [place] in the last 14 days. At this time, the client does not indicate any symptoms associated with coronavirus-19. Ebola Screen: Patient denies travel to an Ebola-affected area in the 21 days before illness onset. Initial Sepsis Screen: Does the patient meet any 2 criteria? No. Patient's initial sepsis screen is negative. Does the patient have a suspected source of infection? No. Patient's initial sepsis screen is negative. Risk Assessment: Do you want to hurt yourself or someone else? Patient reports no desire to harm self or others. Onset of symptoms was December 29, 2024. 11:19 Method Of Arrival: Ambulatory ll1 11:19 Acuity: ANKITA 4 ll1 Triage Assessment: 11:20 General: Appears uncomfortable, Behavior is calm, cooperative, appropriate for age. ll1 Pain: Complains of pain in neck Pain currently is 7 out of 10 on a pain scale. Quality of pain is described as burning, Pain began. Derm: Reports rad burning, raised rash to neck area. REPAIR ORDER CLERK: 12:01 LMP N/A - control method, Not ll1 Historical: - Allergies: 11:20 Sulfa (Sulfonamide Antibiotics); ll1 - PMHx: 11:20 - Nov 2021; ll1 - PSHx: 11:20 Cholecystectomy; Ligation of fallopian tube; Tonsillectomy; skin CA removed from arm ll1 (Tonsillectomy); - Immunization history:: Adult Immunizations up to date. - Infectious Disease History:: Denies. - Social history:: Smoking status: Patient denies any tobacco usage or history of. Screenin:01 [facility] ED Fall Risk Assessment (Adult) History of falling in the last 3 months, ll1 including since admission No falls in past 3 months (0 pts) Confusion or Disorientation No (0 pts) Intoxicated or Sedated No (0 pts) Impaired Gait No (0 pts) Mobility Assist Device Used No (0 pt) Altered Elimination No (0 pt) Score/Fall Risk Level 0 - 2 = Low Risk Maintained a safe environment, Hourly rounding (assess needs \T\ fall precautionary measures) done. Abuse screen: Denies threats or abuse. Nutritional screening: No deficits noted. Tuberculosis screening: No symptoms or risk factors identified. Assessment: 11:46 Reassessment: No changes from previously documented assessment. Patient and/or family ll1 updated on plan of care and expected duration. Pain level reassessed. Patient is alert, oriented x 3, equal unlabored respirations, skin warm/dry/pink. 12:00 Reassessment: Patient is alert, oriented x 3, equal unlabored respirations, skin aa5 warm/dry/pink. Vital Signs: 11:19 BP 137 / 89; Pulse 83; Resp 17; Temp 97.4; Pulse Ox 99% ; Pain 7/10; ll1 11:19 Pain Scale: Adult ll1 ED Course: 11:07 Patient arrived in ED. rg4 11:08 Dennis Hutton, [facility]. dr5 11:08 Alessandro Helms MD is Attending Physician. dr5 11:20 Triage completed. ll1 11:21 Arm band placed on. ll1 12:01 Patient has correct armband on for positive identification. Provided Education on: ll1 return to ED for worsening symptoms. 12:01 No provider procedures requiring assistance completed. Patient did not have IV access aa5 during this emergency room visit. Administered Medications: 11:46 Drug: Dexamethasone IM 10 mg IM once Route: IM; Site: left gluteus; ll1 12:01 Follow up: Response: No adverse reaction aa5 11:46 Drug: diphenhydrAMINE IM 25 mg IM once Route: IM; Site: right gluteus; ll1 12:01 Follow up: Response: No adverse reaction aa5 11:46 Drug: Famotidine PO 20 mg PO once Route: PO; ll1 12:01 Follow up: Response: No adverse reaction aa5 Medication: 12:01 VIS not applicable for this client. ll1 Outcome: 11:31 Discharge ordered by . dr5 12:01 Discharged to home ambulatory, with friend, aa5 12:01 Condition: stable 12:01 Discharge instructions given to patient, Instructed on discharge instructions, follow up and referral plans. medication usage, Demonstrated understanding of instructions, follow-up care, medications, Prescriptions given X 3, 12:01 Patient left the ED. aa5 Signatures: Cristiana Westbrook, RN RN aa5 Kristin Monroe4 Martin Bower RN RN ll1 Dennis Hutton, SAWMILL SUPERVISOR-C SAWMILL SUPERVISOR-[facility]5
--- NOTE | 2025-01-06 11:31 | EDPHYS ---
Physician Documentation [facility] Name: Brenda Nicole Age: 54 yrs Sex: Female : 1970 Arrival Date: 01/06/2025 Time: 11:05 Bed 10 Private MD: ED Physician Alessandro Helms HPI: 01/06 11:33 This 54 yrs old Female presents to ER via Ambulatory with complaints of Rash. dr5 11:33 The patient's rash thought to be caused by Eczema. The rash is located on the neck. dr5 Onset: The symptoms/episode began/occurred yesterday. Patient is a 54-year-old female with history of TIA coming in with rash to bilateral neck that started yesterday. Patient reports that this occurred last week and resolved with Benadryl. Patient reports that she has a primary care doctor appointment next month on January 25 due to her not being able to make her appointment this month that she had canceled. Patient denies chest pain, shortness of breath, difficulty swallowing, handling secretions. Patient speaking in full sentences.. 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 - Infectious Disease History:: Denies. - Social history:: Smoking status: Patient denies any tobacco usage or history of. ROS: 11:33 Constitutional: as per hpi dr5 Exam: 11:33 Constitutional: This is a well developed, well nourished patient who is awake, alert, dr5 and in no acute distress. Head/Face: Normocephalic, atraumatic. ENT: Nares patent. No nasal discharge, no septal abnormalities noted. Tympanic membranes are normal and external auditory canals are clear. Oropharynx with no redness, swelling, or masses, exudates, or evidence of obstruction, uvula midline. Mucous membranes moist. Neck: Trachea midline, no thyromegaly or masses palpated, and no cervical lymphadenopathy. Supple, full range of motion without nuchal rigidity, or vertebral point tenderness. No Meningismus. Chest/axilla: Normal chest wall appearance and motion. Nontender with no deformity. No lesions are appreciated. Cardiovascular: Regular rate and rhythm with a normal S1 and S2. Normal PMI, no JVD. No pulse deficits. Respiratory: Lungs have equal breath sounds bilaterally, clear to auscultation. No rales, rhonchi or wheezes noted. No increased work of breathing, no retractions or nasal flaring. Back: No spinal tenderness. No costovertebral tenderness. Full range of motion. MS/ Extremity: Pulses equal, no cyanosis. Neurovascular intact. Full, normal range of motion. Neuro: Awake and alert, GCS 15, oriented to person, place, time, and situation. Cranial nerves II-XII grossly intact. Motor strength 5/5 in all extremities. Sensory grossly intact. Cerebellar exam normal. Normal gait. 11:33 Skin: rash a moderate rash is noted, rash can be described as excoriated, papular, raised, urticarial, on the bilateral neck, Vital Signs: 11:19 BP 137 / 89; Pulse 83; Resp 17; Temp 97.4; Pulse Ox 99% ; Pain 7/10; ll1 11:19 Pain Scale: Adult ll1 MDM: 11:09 Medical Screening Exam initiated dr5 11:33 Differential diagnosis: impetigo, varicella, allergic reaction. Data reviewed: vital dr5 signs, nurses notes. I considered the following discharge prescriptions or medication management in the emergency department Medications were administered in the Emergency Department. See MAR. Care significantly affected by the following Social Determinants of Health: Poor access to healthcare and/or lack of insurance, Poor access to transportation, Problems related to employment. 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 ED course: Patient was given dose of dexamethasone IM and Benadryl IM with Pepcid p.o. patient requesting more Protonix as she has not been to follow-up with her doctor and the medications are helping. Will give patient steroid Dosepak to start take tomorrow I recommended taking Pepcid and Benadryl at home as needed for itching. Recommended patient follow-up with dermatology this week for further management.. 01/06 11:36 Order name: Glucose, Ancillary Testing; Complete Time: 11:37 EDMS Administered Medications: 11:46 Drug: Dexamethasone IM 10 mg IM once Route: IM; Site: left gluteus; ll1 12:01 Follow up: Response: No adverse reaction aa5 11:46 Drug: diphenhydrAMINE IM 25 mg IM once Route: IM; Site: right gluteus; ll1 12:01 Follow up: Response: No adverse reaction aa5 11:46 Drug: Famotidine PO 20 mg PO once Route: PO; ll1 12:01 Follow up: Response: No adverse reaction aa5 Disposition Summary: 01/06/25 11:31 Discharge Ordered Notes: Location: Home dr5 Condition: Stable dr5 Diagnosis - Rash and other nonspecific skin eruption dr5 Followup: dr5 - With: Emergency Department - When: As needed - Reason: Worsening of condition Followup: dr5 - With: Private Physician - When: 1 - 2 days - Reason: Recheck today's complaints, Continuance of care, Re-evaluation by your physician Discharge Instructions: - Discharge Summary Sheet dr5 - Rash, Adult dr5 Forms: - Work release form dr5 - Medication Reconciliation Form dr5 - Patient Portal Instructions dr5 - Leadership Thank You Letter dr5 Prescriptions: - Protonix 40 mg Oral Tablet - take 1 tablet ORAL route once daily; 30 tablet; Refills: 0, Product Selection dr5 Permitted - Medrol (Danny) 4 mg Oral Tablets, Dose Pack - take 1 tablet ORAL route as directed - follow package instructions; 1 packet; dr5 Refills: 0, Product Selection Permitted - Triamcinolone Acetonide 0.1 % Topical ointment - apply 1 application TOPICAL route every 12 hours As needed; 1 application; dr5 Refills: 0, Product Selection Permitted Signatures: Martin Bower RN RN ll1 Dennis Hutton, SMALL BOAT ENGINEER-C SMALL BOAT ENGINEER-Cdr5 Cristiana Westbrook RN aa5 Corrections: (The following items were deleted from the chart) 11:35 11:33 Patient is a 54-year-old female with history of TIA coming in with rash to dr5 bilateral neck that started yesterday. Patient reports that this occurred last week and resolved with Benadryl. Patient reports that she has a primary care doctor appointment next month on January 25 due to her not being able to make her appointment this month that she had canceled.. dr5
[2025-01-06 12:20] VITALS: BP 137/89; TEMP 97.4; O2SAT 99
== END 2025-01-06 12:01 | disposition home or self-care (01) ==
LOC: ER 11:05
DX: R21 Rash and other nonspecific skin eruption (principal)
CPT/HCPCS: 82947; 96372; 99284; J1200 ×2; J1100